=== PATIENT | male | born 1945 | race Caucasian/White ===

== ENCOUNTER 2022-02-22 18:39 | Inpatient (IN) | payer MEDICARE ==
[2022-02-22 18:59] LABS: #Eosinphils 0.4 thou/uL (0.0-0.7); #Lymphocytes 0.7 thou/uL (1.20-3.40); #Monocytes 0.7 thou/uL (0.11-0.59); #Neutrophils 10.8 thou/uL (1.40-6.50); %Basophils 0.2 % (0.0-1.0); %Eosinophils 3.5 % (0.0-10.0); %Lymphocytes 5.2 % (21.0-51.0); %Monocytes 5.6 % (0.0-10.0); %Neutrophils 85.5 % (42.0-75.0); Hemoglobin 11.5 g/dL (14.0-18.0); Mean Corpuscular HGB CONC 32.8 g/dL (32.0-36.0); Mean Corpuscular Hemoglobin 32.6 pg (27.0-31.0); Mean Corpuscular Volume 99.5 fL (78.0-98.0); Mean Platelet Volume 7.1 fL (7.4-10.4); Platelet Count 400 thou/uL (130-400); RBC Distribution Width 12.5 % (11.5-14.5); Red Blood Cell (RBC) Count 3.53 mill/uL (4.70-6.10); White Blood Cell (WBC) Count 12.6 thou/uL (4.8-10.8)
[2022-02-22] MEDS ORDERED: Morphine 2 MG/ML VIAL ONE (19:03)
[2022-02-22 19:21] LABS: ALT (SGPT) 17 U/L (8-55); AST (SGOT) 15 U/L (5-34); Alkaline Phosphatase 142 U/L (40-110); Anion Gap 13 mmol/L (10-20); BUN (Urea Nitrogen) 18 mg/dL (8.4-25.7); Bilirubin, Total 0.3 mg/dL (0.2-1.2); Calc. Creatinine Clearance 0 mL/min (70-130); Calcium 8.8 mg/dL (7.8-10.44); Carbon Dioxide 21 mmol/L (23-31); Chloride 111 mmol/L (98-107); Globulin 2.2 g/dL (2.4-3.5); Glucose 116 mg/dL (83-110); Potassium 3.8 mmol/L (3.5-5.1); Protein, Total 6.2 g/dL (5.8-8.1); Sodium 141 mmol/L (136-145)
[2022-02-22] MEDS ORDERED: Dextrose 5% in Water 1,000 ML IV PRN (19:49)
[2022-02-22] MEDS ORDERED: Dextrose 50% Abboject 50 ML SYRINGE SLOW IVP PRN (19:49)
[2022-02-22] MEDS ORDERED: Ondansetron PF 4 MG/2 ML Vial IVP PRN (19:49)
[2022-02-22] MEDS ORDERED: hydrALAZINE 20 MG/ML VIAL SLOW IVP PRN (19:49)
[2022-02-22] MEDS ORDERED: Ondansetron ODT 4 MG TAB PO PRN (19:49)
[2022-02-22] MEDS ORDERED: Promethazine HCl 25 MG/ML VIAL IM PRN (19:49)
[2022-02-22] MEDS ORDERED: traMADol HCl 50 MG TAB PO PRN (19:49)
[2022-02-22] MEDS: Acetaminophen 325 MG TAB PO SCH (23:49)
[2022-02-22] MEDS: Famotidine 20 MG TAB PO SCH (23:50)
[2022-02-23] MEDS: Acetaminophen 325 MG TAB PO SCH ×4 (02:04→21:09)
[2022-02-23] MEDS: Sodium Chloride 0.9% 1,000 ML IV SCH ×2 (02:09→10:35)
[2022-02-23] MEDS: Morphine 2 MG/ML VIAL SLOW IVP PRN ×3 (02:11→14:15)
[2022-02-23 05:46] LABS: #Eosinphils 0.1 thou/uL (0.0-0.7); #Lymphocytes 0.8 thou/uL (1.20-3.40); #Monocytes 1.1 thou/uL (0.11-0.59); #Neutrophils 9.5 thou/uL (1.40-6.50); %Basophils 0.1 % (0.0-1.0); %Eosinophils 0.8 % (0.0-10.0); %Lymphocytes 6.6 % (21.0-51.0); %Monocytes 9.7 % (0.0-10.0); %Neutrophils 82.8 % (42.0-75.0); Hemoglobin 9.8 g/dL (14.0-18.0); Mean Corpuscular HGB CONC 32.3 g/dL (32.0-36.0); Mean Corpuscular Hemoglobin 32.5 pg (27.0-31.0); Mean Platelet Volume 7.3 fL (7.4-10.4); Platelet Count 332 thou/uL (130-400); RBC Distribution Width 12.5 % (11.5-14.5); Red Blood Cell (RBC) Count 3.02 mill/uL (4.70-6.10); White Blood Cell (WBC) Count 11.5 thou/uL (4.8-10.8)
[2022-02-23 06:17] LABS: Anion Gap 12 mmol/L (10-20); BUN (Urea Nitrogen) 20 mg/dL (8.4-25.7); Calc. Creatinine Clearance 109 mL/min (70-130); Calcium 8.3 mg/dL (7.8-10.44); Carbon Dioxide 19 mmol/L (23-31); Chloride 112 mmol/L (98-107); Glucose 115 mg/dL (83-110); Potassium 3.5 mmol/L (3.5-5.1); Sodium 139 mmol/L (136-145)
[2022-02-23] MEDS ORDERED: MEMANTINE HCL 28 MG PO SCH (09:00)
[2022-02-23] MEDS ORDERED: Non-Formulary Item 1 EACH (Risperidone [Risperdal] 0.5 MG Tab) PO SCH (09:00)
[2022-02-23] MEDS ORDERED: Non-Formulary Item 1 EACH (Levothyroxine Sodium [Levothyroxine] 50 MCG Capsule) PO SCH (09:00)
[2022-02-23] MEDS ORDERED: Magnesium Sulfate 2 GM in Sodium Chloride 0.9% 100 ML IV SCH (09:15)
[2022-02-23] MEDS ORDERED: Potassium Phosphate 30 MMOL, Magnesium Sulfate 2 GM in Sodium Chloride 0.9% 250 ML 250 ML IVPB SCH (09:15)
[2022-02-23] MEDS: Senokot S 8.6-50 MG TAB PO SCH ×2 (10:36→21:10)
[2022-02-23] MEDS: Escitalopram Oxalate 10 mg Tablet PO SCH (10:37)
[2022-02-23] MEDS: Donepezil HCl 10 MG TAB PO SCH (10:37)
[2022-02-23] MEDS: risperiDONE 0.25 MG TAB PO SCH ×3 (10:37→21:07)
[2022-02-23] MEDS: Famotidine 20 MG TAB PO SCH ×2 (10:37→21:09)
[2022-02-23] MEDS: Ascorbic Acid 500 mg Chewable Tablet PO SCH ×2 (10:38→21:07)
[2022-02-23] MEDS: Folic Acid 1 MG TAB PO SCH (10:38)
[2022-02-23] MEDS: Polyethylene Glycol 3350 17 GM Packet PO SCH (10:38)
[2022-02-23] MEDS: Lisinopril 10 MG TAB PO SCH ×2 (10:38→21:08)
[2022-02-23] MEDS: Ferrous Sulfate 325 MG TAB PO SCH ×2 (10:45→16:13)
[2022-02-23 17:24] LABS: SARS-CoV-2 PCR by NAA Not Detected (NotDetected)
[2022-02-23] MEDS: Rosuvastatin 5 MG TAB PO SCH (21:08)
[2022-02-24] MEDS: Acetaminophen 325 MG TAB PO SCH ×4 (02:39→21:00)
[2022-02-24 05:15] LABS: #Eosinphils 0.2 thou/uL (0.0-0.7); #Monocytes 0.8 thou/uL (0.11-0.59); #Neutrophils 5.4 thou/uL (1.40-6.50); %Basophils 0.3 % (0.0-1.0); %Eosinophils 3.3 % (0.0-10.0); %Lymphocytes 12.9 % (21.0-51.0); %Monocytes 11.3 % (0.0-10.0); %Neutrophils 72.2 % (42.0-75.0); Hemoglobin 8.4 g/dL (14.0-18.0); Mean Corpuscular HGB CONC 32.7 g/dL (32.0-36.0); Mean Platelet Volume 7.6 fL (7.4-10.4); Platelet Count 284 thou/uL (130-400); RBC Distribution Width 12.6 % (11.5-14.5); Red Blood Cell (RBC) Count 2.54 mill/uL (4.70-6.10); White Blood Cell (WBC) Count 7.4 thou/uL (4.8-10.8)
[2022-02-24 05:35] LABS: Anion Gap 9 mmol/L (10-20); BUN (Urea Nitrogen) 13 mg/dL (8.4-25.7); Calc. Creatinine Clearance 124 mL/min (70-130); Calcium 8.5 mg/dL (7.8-10.44); Carbon Dioxide 22 mmol/L (23-31); Chloride 111 mmol/L (98-107); Glucose 100 mg/dL (83-110); Magnesium 2.1 mg/dL (1.6-2.6); Phosphorus 3.1 mg/dL (2.3-4.7); Potassium 3.5 mmol/L (3.5-5.1); Sodium 138 mmol/L (136-145)
[2022-02-24] MEDS: Levothyroxine Sodium 50 MCG TAB PO SCH (06:07)
[2022-02-24] MEDS: Lisinopril 10 MG TAB PO SCH ×2 (09:28→21:01)
[2022-02-24] MEDS: Ferrous Sulfate 325 MG TAB PO SCH ×2 (09:28→16:34)
[2022-02-24] MEDS: Famotidine 20 MG TAB PO SCH ×2 (09:29→20:59)
[2022-02-24] MEDS: Folic Acid 1 MG TAB PO SCH (09:29)
[2022-02-24] MEDS: Escitalopram Oxalate 10 mg Tablet PO SCH (09:29)
[2022-02-24] MEDS: Polyethylene Glycol 3350 17 GM Packet PO SCH (09:29)
[2022-02-24] MEDS: Donepezil HCl 10 MG TAB PO SCH ×2 (09:29→21:01)
[2022-02-24] MEDS: Ascorbic Acid 500 mg Chewable Tablet PO SCH ×2 (09:29→21:01)
[2022-02-24] MEDS: Senokot S 8.6-50 MG TAB PO SCH ×2 (09:29→20:59)
[2022-02-24] MEDS: risperiDONE 0.25 MG TAB PO SCH ×3 (09:33→20:59)
[2022-02-24] MEDS ORDERED: ceFAZolin (BATCH) 2 GM in Premix Bag 1 BAG IVPB SCH (10:00)
[2022-02-24] MEDS: Morphine 2 MG/ML VIAL SLOW IVP PRN ×3 (10:23→15:19)
[2022-02-24] MEDS: Rosuvastatin 5 MG TAB PO SCH (21:00)
[2022-02-25] MEDS: Acetaminophen 325 MG TAB PO SCH ×4 (02:16→20:11)
[2022-02-25 05:45] LABS: #Eosinphils 0.2 thou/uL (0.0-0.7); #Lymphocytes 0.9 thou/uL (1.20-3.40); #Monocytes 0.9 thou/uL (0.11-0.59); %Basophils 0.2 % (0.0-1.0); %Eosinophils 2.2 % (0.0-10.0); %Lymphocytes 9.3 % (21.0-51.0); %Monocytes 8.6 % (0.0-10.0); %Neutrophils 79.8 % (42.0-75.0); Hemoglobin 9.5 g/dL (14.0-18.0); Mean Corpuscular HGB CONC 33.7 g/dL (32.0-36.0); Mean Corpuscular Hemoglobin 33.8 pg (27.0-31.0); Mean Platelet Volume 7.5 fL (7.4-10.4); Platelet Count 294 thou/uL (130-400); RBC Distribution Width 12.2 % (11.5-14.5); Red Blood Cell (RBC) Count 2.81 mill/uL (4.70-6.10)
[2022-02-25] MEDS: Levothyroxine Sodium 50 MCG TAB PO SCH (05:59)
[2022-02-25] MEDS: Ascorbic Acid 500 mg Chewable Tablet PO SCH ×2 (10:06→20:11)
[2022-02-25] MEDS: Escitalopram Oxalate 10 mg Tablet PO SCH (10:06)
[2022-02-25] MEDS: Senokot S 8.6-50 MG TAB PO SCH ×2 (10:06→20:11)
[2022-02-25] MEDS: Polyethylene Glycol 3350 17 GM Packet PO SCH (10:06)
[2022-02-25] MEDS: risperiDONE 0.25 MG TAB PO SCH ×3 (10:06→20:11)
[2022-02-25] MEDS: Famotidine 20 MG TAB PO SCH ×2 (10:07→20:10)
[2022-02-25] MEDS: Folic Acid 1 MG TAB PO SCH (10:07)
[2022-02-25] MEDS: Ferrous Sulfate 325 MG TAB PO SCH ×2 (10:07→19:20)
[2022-02-25] MEDS: Donepezil HCl 10 MG TAB PO SCH ×2 (10:07→20:10)
[2022-02-25] MEDS: Lisinopril 10 MG TAB PO SCH ×2 (10:07→20:10)
[2022-02-25] MEDS ORDERED: Enoxaparin Sodium 40 MG/0.4 ML SYRINGE SC SCH (11:00)
[2022-02-25] MEDS: Oxazepam 10 MG CAP PO SCH ×3 (15:12→22:50)
[2022-02-25] MEDS: Rosuvastatin 5 MG TAB PO SCH (20:10)
[2022-02-26] MEDS: Acetaminophen 325 MG TAB PO SCH ×4 (02:03→21:59)
[2022-02-26 05:45] LABS: #Eosinphils 0.3 thou/uL (0.0-0.7); #Lymphocytes 0.9 thou/uL (1.20-3.40); #Monocytes 0.9 thou/uL (0.11-0.59); #Neutrophils 7.8 thou/uL (1.40-6.50); %Basophils 0.3 % (0.0-1.0); %Eosinophils 3.4 % (0.0-10.0); %Lymphocytes 8.6 % (21.0-51.0); %Monocytes 8.7 % (0.0-10.0); Hemoglobin 8.6 g/dL (14.0-18.0); Mean Corpuscular HGB CONC 32.7 g/dL (32.0-36.0); Mean Corpuscular Hemoglobin 32.5 pg (27.0-31.0); Mean Corpuscular Volume 99.5 fL (78.0-98.0); Mean Platelet Volume 7.4 fL (7.4-10.4); Platelet Count 300 thou/uL (130-400); RBC Distribution Width 12.1 % (11.5-14.5); Red Blood Cell (RBC) Count 2.64 mill/uL (4.70-6.10); White Blood Cell (WBC) Count 9.9 thou/uL (4.8-10.8)
[2022-02-26 06:11] LABS: Anion Gap 12 mmol/L (10-20); BUN (Urea Nitrogen) 10 mg/dL (8.4-25.7); Calc. Creatinine Clearance 116 mL/min (70-130); Calcium 8.9 mg/dL (7.8-10.44); Carbon Dioxide 24 mmol/L (23-31); Chloride 107 mmol/L (98-107); Glucose 106 mg/dL (83-110); Magnesium 2.1 mg/dL (1.6-2.6); Phosphorus 2.9 mg/dL (2.3-4.7); Potassium 3.9 mmol/L (3.5-5.1); Sodium 139 mmol/L (136-145)
[2022-02-26] MEDS: Oxazepam 10 MG CAP PO SCH (06:32)
[2022-02-26] MEDS: Levothyroxine Sodium 50 MCG TAB PO SCH (06:33)
[2022-02-26] MEDS ORDERED: Sodium Phosphate 15 MMOL in Sodium Chloride 0.9% 250 ML 250 ML IVPB SCH (08:00)
[2022-02-26] MEDS: Ascorbic Acid 500 mg Chewable Tablet PO SCH ×2 (08:57→22:01)
[2022-02-26] MEDS: Ferrous Sulfate 325 MG TAB PO SCH ×2 (08:57→18:26)
[2022-02-26] MEDS: Escitalopram Oxalate 10 mg Tablet PO SCH (09:00)
[2022-02-26] MEDS: Vancomycin 1.5 GRAM/300 ML BAG 1.5 GM in Premix Bag 1 BAG IVPB SCH ×2 (09:15→22:31)
[2022-02-26] MEDS: ceFAZolin (BATCH) 2 GM in Premix Bag 1 BAG IVPB SCH (09:35)
[2022-02-26] MEDS ORDERED: Bupivacaine 0.25% HCL 30 ML VIAL ONE (10:51)
[2022-02-26] MEDS ORDERED: Fentanyl 100 MCG/2 ML VIAL ONE ×4 (11:01→15:08)
[2022-02-26] MEDS: Famotidine 20 MG TAB PO SCH ×2 (11:09→22:00)
[2022-02-26] MEDS: Senokot S 8.6-50 MG TAB PO SCH ×2 (11:10→21:59)
[2022-02-26] MEDS: risperiDONE 0.25 MG TAB PO SCH ×3 (11:10→21:59)
[2022-02-26] MEDS ORDERED: ceFAZolin (BATCH) 2 GM/100 ML BAG ONE (11:54)
[2022-02-26] MEDS ORDERED: Rocuronium Bromide 10 MG/ML (10ML VIAL) ONE (12:10)
[2022-02-26] MEDS ORDERED: Calcium Chloride 1 GM/10 ML Abboject SYRINGE ONE (12:10)
[2022-02-26] MEDS ORDERED: ePHEDrine 50 MG/ML VIAL ONE (12:10)
[2022-02-26] MEDS ORDERED: Ondansetron PF 4 MG/2 ML Vial ONE (12:10)
[2022-02-26] MEDS ORDERED: Dexamethasone 20 MG/5 ML VIAL ONE (12:10)
[2022-02-26] MEDS ORDERED: Vecuronium 10 MG VIAL ONE (12:10)
[2022-02-26] MEDS ORDERED: Lidocaine 1% PF 5 ML VIAL ONE (12:10)
[2022-02-26] MEDS ORDERED: PROPOFOL 200 MG/20 ML VIAL ONE (12:10)
[2022-02-26] MEDS: Donepezil HCl 10 MG TAB PO SCH ×2 (12:49→22:01)
[2022-02-26] MEDS ORDERED: Tranexamic Acid 1,000 MG/10 ML VIAL ONE (12:50)
[2022-02-26] MEDS: Polyethylene Glycol 3350 17 GM Packet PO SCH (12:50)
[2022-02-26] MEDS ORDERED: SUGAMMADEX SODIUM 200 MG/2 ML VIAL ONE ×2 (14:33→14:36)
[2022-02-26] MEDS: Folic Acid 1 MG TAB PO SCH (16:17)
[2022-02-26] MEDS: Lisinopril 10 MG TAB PO SCH ×2 (16:17→22:00)
[2022-02-26] MEDS: Morphine 2 MG/ML VIAL SLOW IVP PRN (16:34)
[2022-02-26] MEDS: Rosuvastatin 5 MG TAB PO SCH (21:59)
[2022-02-27] MEDS: Acetaminophen 325 MG TAB PO SCH ×4 (02:10→23:26)
[2022-02-27] MEDS: ceFAZolin (BATCH) 2 GM in Premix Bag 1 BAG IVPB SCH ×2 (03:19→12:00)
[2022-02-27 05:27] LABS: #Lymphocytes 0.6 thou/uL (1.20-3.40); #Monocytes 1.2 thou/uL (0.11-0.59); #Neutrophils 11.7 thou/uL (1.40-6.50); %Eosinophils 0.1 % (0.0-10.0); %Lymphocytes 4.5 % (21.0-51.0); %Monocytes 8.9 % (0.0-10.0); %Neutrophils 86.6 % (42.0-75.0); Hemoglobin 8.5 g/dL (14.0-18.0); Mean Corpuscular HGB CONC 32.6 g/dL (32.0-36.0); Mean Corpuscular Hemoglobin 31.8 pg (27.0-31.0); Mean Corpuscular Volume 97.6 fL (78.0-98.0); Mean Platelet Volume 7.5 fL (7.4-10.4); Platelet Count 283 thou/uL (130-400); Red Blood Cell (RBC) Count 2.68 mill/uL (4.70-6.10); White Blood Cell (WBC) Count 13.5 thou/uL (4.8-10.8)
[2022-02-27 05:54] LABS: Anion Gap 13 mmol/L (10-20); BUN (Urea Nitrogen) 18 mg/dL (8.4-25.7); Calc. Creatinine Clearance 96 mL/min (70-130); Calcium 8.6 mg/dL (7.8-10.44); Carbon Dioxide 20 mmol/L (23-31); Chloride 110 mmol/L (98-107); Glucose 139 mg/dL (83-110); Magnesium 1.9 mg/dL (1.6-2.6); Phosphorus 3.5 mg/dL (2.3-4.7); Potassium 4.1 mmol/L (3.5-5.1); Sodium 139 mmol/L (136-145)
[2022-02-27] MEDS: Levothyroxine Sodium 50 MCG TAB PO SCH (06:06)
[2022-02-27] MEDS: Vancomycin 1.5 GRAM/300 ML BAG 1.5 GM in Premix Bag 1 BAG IVPB SCH (09:01)
[2022-02-27] MEDS: Polyethylene Glycol 3350 17 GM Packet PO SCH (09:28)
[2022-02-27] MEDS: Enoxaparin Sodium 40 MG/0.4 ML SYRINGE SC SCH (09:29)
[2022-02-27] MEDS: Senokot S 8.6-50 MG TAB PO SCH ×2 (09:29→23:28)
[2022-02-27] MEDS: Ascorbic Acid 500 mg Chewable Tablet PO SCH ×2 (09:30→23:26)
[2022-02-27] MEDS: Famotidine 20 MG TAB PO SCH ×2 (09:30→23:28)
[2022-02-27] MEDS: risperiDONE 0.25 MG TAB PO SCH ×3 (09:31→23:28)
[2022-02-27] MEDS: Escitalopram Oxalate 10 mg Tablet PO SCH (09:31)
[2022-02-27] MEDS: Donepezil HCl 10 MG TAB PO SCH ×2 (09:31→23:26)
[2022-02-27] MEDS: Folic Acid 1 MG TAB PO SCH (09:31)
[2022-02-27] MEDS: Ferrous Sulfate 325 MG TAB PO SCH ×2 (09:31→18:39)
[2022-02-27] MEDS: Lisinopril 10 MG TAB PO SCH ×2 (09:32→23:27)
[2022-02-27] MEDS ORDERED: PHOS-NAK 1 PKT PACK PO SCH (11:45)
[2022-02-27] MEDS: Rosuvastatin 5 MG TAB PO SCH (23:26)
[2022-02-28] MEDS: Acetaminophen 325 MG TAB PO SCH ×4 (03:49→20:23)
[2022-02-28 05:39] LABS: #Eosinphils 0.1 thou/uL (0.0-0.7); #Monocytes 1.1 thou/uL (0.11-0.59); #Neutrophils 8.5 thou/uL (1.40-6.50); %Basophils 0.1 % (0.0-1.0); %Eosinophils 0.8 % (0.0-10.0); %Lymphocytes 9.3 % (21.0-51.0); %Monocytes 10.4 % (0.0-10.0); %Neutrophils 79.5 % (42.0-75.0); Hemoglobin 7.2 g/dL (14.0-18.0); Mean Corpuscular HGB CONC 32.5 g/dL (32.0-36.0); Mean Corpuscular Hemoglobin 31.9 pg (27.0-31.0); Mean Platelet Volume 7.4 fL (7.4-10.4); Platelet Count 257 thou/uL (130-400); RBC Distribution Width 12.7 % (11.5-14.5); Red Blood Cell (RBC) Count 2.25 mill/uL (4.70-6.10); White Blood Cell (WBC) Count 10.7 thou/uL (4.8-10.8)
[2022-02-28 06:12] LABS: Anion Gap 11 mmol/L (10-20); BUN (Urea Nitrogen) 17 mg/dL (8.4-25.7); Calc. Creatinine Clearance 109 mL/min (70-130); Calcium 8.3 mg/dL (7.8-10.44); Carbon Dioxide 23 mmol/L (23-31); Chloride 108 mmol/L (98-107); Glucose 105 mg/dL (83-110); Magnesium 1.8 mg/dL (1.6-2.6); Phosphorus 2.7 mg/dL (2.3-4.7); Potassium 3.6 mmol/L (3.5-5.1); Sodium 138 mmol/L (136-145)
[2022-02-28] MEDS: Levothyroxine Sodium 50 MCG TAB PO SCH (06:22)
[2022-02-28] MEDS ORDERED: PHOS-NAK 1 PKT PACK PO SCH (08:30)
[2022-02-28] MEDS: Ascorbic Acid 500 mg Chewable Tablet PO SCH ×2 (09:13→20:24)
[2022-02-28] MEDS: Donepezil HCl 10 MG TAB PO SCH ×2 (09:13→20:25)
[2022-02-28] MEDS: risperiDONE 0.25 MG TAB PO SCH ×3 (09:14→20:25)
[2022-02-28] MEDS: Escitalopram Oxalate 10 mg Tablet PO SCH (09:14)
[2022-02-28] MEDS: Famotidine 20 MG TAB PO SCH ×2 (09:14→20:24)
[2022-02-28] MEDS: Ferrous Sulfate 325 MG TAB PO SCH ×2 (09:14→18:41)
[2022-02-28] MEDS: Folic Acid 1 MG TAB PO SCH (09:14)
[2022-02-28] MEDS: Senokot S 8.6-50 MG TAB PO SCH ×2 (09:15→20:24)
[2022-02-28] MEDS: Enoxaparin Sodium 40 MG/0.4 ML SYRINGE SC SCH (09:16)
[2022-02-28] MEDS: Polyethylene Glycol 3350 17 GM Packet PO SCH (09:16)
[2022-02-28] MEDS: Lisinopril 10 MG TAB PO SCH ×2 (09:40→20:24)
[2022-02-28 16:36] LABS: #Eosinphils 0.2 thou/uL (0.0-0.7); #Lymphocytes 0.7 thou/uL (1.20-3.40); #Neutrophils 7.5 thou/uL (1.40-6.50); %Basophils 0.2 % (0.0-1.0); %Eosinophils 2.6 % (0.0-10.0); %Lymphocytes 7.6 % (21.0-51.0); %Monocytes 10.2 % (0.0-10.0); %Neutrophils 79.4 % (42.0-75.0); Hemoglobin 7.8 g/dL (14.0-18.0); Mean Corpuscular HGB CONC 32.4 g/dL (32.0-36.0); Mean Corpuscular Hemoglobin 32.7 pg (27.0-31.0); Mean Platelet Volume 7.2 fL (7.4-10.4); Platelet Count 298 thou/uL (130-400); RBC Distribution Width 12.9 % (11.5-14.5); Red Blood Cell (RBC) Count 2.39 mill/uL (4.70-6.10); White Blood Cell (WBC) Count 9.5 thou/uL (4.8-10.8)
[2022-02-28 16:49] LABS: ALT (SGPT) 20 U/L (8-55); AST (SGOT) 38 U/L (5-34); Albumin 3.1 g/dL (3.4-4.8); Alkaline Phosphatase 88 U/L (40-110); Anion Gap 13 mmol/L (10-20); BUN (Urea Nitrogen) 14 mg/dL (8.4-25.7); Bilirubin, Total 0.7 mg/dL (0.2-1.2); Calc. Creatinine Clearance 124 mL/min (70-130); Calcium 8.6 mg/dL (7.8-10.44); Carbon Dioxide 22 mmol/L (23-31); Chloride 108 mmol/L (98-107); Globulin 2.4 g/dL (2.4-3.5); Glucose 102 mg/dL (83-110); Magnesium 1.8 mg/dL (1.6-2.6); Phosphorus 2.7 mg/dL (2.3-4.7); Potassium 3.8 mmol/L (3.5-5.1); Protein, Total 5.5 g/dL (5.8-8.1); Sodium 139 mmol/L (136-145)
[2022-02-28 16:52] LABS: Troponin I 0.016 ng/mL (< 0.028)
[2022-02-28] MEDS ORDERED: levETIRAcetam in NS 1,000 MG in Premix Bag 1 BAG IVPB SCH (17:30)
[2022-02-28] MEDS ORDERED: Magnesium 2 GM/50 ML(in water) 2 GM in Premix Bag 1 BAG IVPB SCH (17:30)
[2022-02-28 17:34] LABS: Bilirubin Negative (Negative); Blood, Urine 1+ (Negative); Clarity Clear (Clear); Glucose, Urine (Dipstick) Normal (Negative); Ketone, Urine Negative (Negative); Leukocyte Negative Leu/uL (Negative); Nitrite Negative (Negative); Protein, Urine (Dipstick) 30 mg/dL (Neg-Trace); Squamous Epithelial 0-3 HPF (0-3); Urobilinogen Normal mg/dL (Less than 2); pH, Urine 5.5 (5.0-9.0)
[2022-02-28 17:35] LABS: Bacteria/HPF Rare-Few HPF (None Seen)
[2022-02-28] MEDS ORDERED: levETIRAcetam 500 MG/5 ML VIAL SLOW IVP SCH (18:00)
[2022-02-28] MEDS: Rosuvastatin 10 MG TAB PO SCH (20:25)
[2022-02-28] MEDS: levETIRAcetam in NS 500 MG in Premix Bag 1 BAG IVPB SCH (20:26)
[2022-02-28] MEDS ORDERED: Melatonin 3 MG TAB PO SCH (21:00)
[2022-03-01] MEDS: Acetaminophen 325 MG TAB PO SCH ×4 (02:08→20:19)
[2022-03-01 03:58] LABS: #Eosinphils 0.3 thou/uL (0.0-0.7); #Lymphocytes 0.6 thou/uL (1.20-3.40); #Monocytes 0.8 thou/uL (0.11-0.59); #Neutrophils 4.5 thou/uL (1.40-6.50); %Basophils 0.4 % (0.0-1.0); %Eosinophils 5.1 % (0.0-10.0); %Lymphocytes 9.8 % (21.0-51.0); %Monocytes 13.2 % (0.0-10.0); %Neutrophils 71.5 % (42.0-75.0); Hemoglobin 6.5 g/dL (14.0-18.0); Mean Corpuscular HGB CONC 32.7 g/dL (32.0-36.0); Mean Corpuscular Hemoglobin 32.2 pg (27.0-31.0); Mean Corpuscular Volume 98.6 fL (78.0-98.0); Mean Platelet Volume 7.2 fL (7.4-10.4); Platelet Count 255 thou/uL (130-400); RBC Distribution Width 12.7 % (11.5-14.5); Red Blood Cell (RBC) Count 2.03 mill/uL (4.70-6.10); White Blood Cell (WBC) Count 6.3 thou/uL (4.8-10.8)
[2022-03-01 04:20] LABS: Anion Gap 11 mmol/L (10-20); BUN (Urea Nitrogen) 17 mg/dL (8.4-25.7); Calc. Creatinine Clearance 121 mL/min (70-130); Carbon Dioxide 23 mmol/L (23-31); Chloride 107 mmol/L (98-107); Glucose 120 mg/dL (83-110); Magnesium 2.2 mg/dL (1.6-2.6); Phosphorus 3.2 mg/dL (2.3-4.7); Potassium 3.7 mmol/L (3.5-5.1); Sodium 137 mmol/L (136-145)
[2022-03-01] MEDS: Levothyroxine Sodium 50 MCG TAB PO SCH (05:56)
[2022-03-01] MEDS: Polyethylene Glycol 3350 17 GM Packet PO SCH (08:39)
[2022-03-01] MEDS: Folic Acid 1 MG TAB PO SCH (08:39)
[2022-03-01] MEDS: Enoxaparin Sodium 40 MG/0.4 ML SYRINGE SC SCH (08:39)
[2022-03-01] MEDS: risperiDONE 0.25 MG TAB PO SCH (08:40)
[2022-03-01] MEDS: Donepezil HCl 10 MG TAB PO SCH ×2 (08:40→20:18)
[2022-03-01] MEDS: Famotidine 20 MG TAB PO SCH ×2 (08:40→20:19)
[2022-03-01] MEDS: Escitalopram Oxalate 10 mg Tablet PO SCH (08:40)
[2022-03-01] MEDS: levETIRAcetam in NS 500 MG in Premix Bag 1 BAG IVPB SCH (08:40)
[2022-03-01] MEDS: Ferrous Sulfate 325 MG TAB PO SCH ×2 (08:40→16:13)
[2022-03-01] MEDS: Ascorbic Acid 500 mg Chewable Tablet PO SCH ×2 (08:40→16:13)
[2022-03-01] MEDS: Senokot S 8.6-50 MG TAB PO SCH ×2 (08:40→20:18)
[2022-03-01] MEDS: Lisinopril 10 MG TAB PO SCH ×2 (08:41→20:19)
[2022-03-01] MEDS: traMADol HCl 50 MG TAB PO PRN (16:13)
[2022-03-01] MEDS: Rosuvastatin 10 MG TAB PO SCH (20:18)
[2022-03-02] MEDS: Acetaminophen 325 MG TAB PO SCH ×4 (01:20→20:17)
[2022-03-02 04:30] LABS: Anion Gap 10 mmol/L (10-20); BUN (Urea Nitrogen) 15 mg/dL (8.4-25.7); Calc. Creatinine Clearance 132 mL/min (70-130); Calcium 8.4 mg/dL (7.8-10.44); Carbon Dioxide 26 mmol/L (23-31); Chloride 107 mmol/L (98-107); Glucose 106 mg/dL (83-110); Phosphorus 3.1 mg/dL (2.3-4.7); Potassium 3.8 mmol/L (3.5-5.1); Sodium 139 mmol/L (136-145)
[2022-03-02 04:37] LABS: #Eosinphils 0.7 thou/uL (0.0-0.7); #Lymphocytes 0.7 thou/uL (1.20-3.40); #Monocytes 0.8 thou/uL (0.11-0.59); %Basophils 0.4 % (0.0-1.0); %Eosinophils 10.3 % (0.0-10.0); %Lymphocytes 9.2 % (21.0-51.0); %Monocytes 10.5 % (0.0-10.0); %Neutrophils 69.6 % (42.0-75.0); Hemoglobin 7.7 g/dL (14.0-18.0); Mean Corpuscular HGB CONC 32.5 g/dL (32.0-36.0); Mean Corpuscular Hemoglobin 31.7 pg (27.0-31.0); Mean Corpuscular Volume 97.3 fL (78.0-98.0); Mean Platelet Volume 7.3 fL (7.4-10.4); Platelet Count 313 thou/uL (130-400); RBC Distribution Width 13.2 % (11.5-14.5); Red Blood Cell (RBC) Count 2.43 mill/uL (4.70-6.10); White Blood Cell (WBC) Count 7.1 thou/uL (4.8-10.8)
[2022-03-02] MEDS: Levothyroxine Sodium 50 MCG TAB PO SCH (05:50)
[2022-03-02] MEDS: traMADol HCl 50 MG TAB PO PRN (06:19)
[2022-03-02] MEDS ORDERED: PHOS-NAK 1 PKT PACK PO SCH (08:30)
[2022-03-02] MEDS: Escitalopram Oxalate 10 mg Tablet PO SCH (08:37)
[2022-03-02] MEDS: Senokot S 8.6-50 MG TAB PO SCH ×2 (08:37→20:18)
[2022-03-02] MEDS: Enoxaparin Sodium 40 MG/0.4 ML SYRINGE SC SCH (08:37)
[2022-03-02] MEDS: Folic Acid 1 MG TAB PO SCH (08:37)
[2022-03-02] MEDS: Donepezil HCl 10 MG TAB PO SCH ×2 (08:37→20:17)
[2022-03-02] MEDS: Ferrous Sulfate 325 MG TAB PO SCH ×2 (08:37→16:57)
[2022-03-02] MEDS: Famotidine 20 MG TAB PO SCH ×2 (08:37→20:17)
[2022-03-02] MEDS: Polyethylene Glycol 3350 17 GM Packet PO SCH (08:37)
[2022-03-02] MEDS: Ascorbic Acid 500 mg Chewable Tablet PO SCH ×2 (08:37→16:57)
[2022-03-02] MEDS: Lisinopril 10 MG TAB PO SCH ×2 (08:38→20:17)
[2022-03-02] MEDS: Rosuvastatin 10 MG TAB PO SCH (20:18)
[2022-03-03] MEDS: Acetaminophen 325 MG TAB PO SCH ×5 (02:04→20:12)
[2022-03-03] MEDS: Levothyroxine Sodium 50 MCG TAB PO SCH (05:39)
[2022-03-03 07:31] LABS: #Eosinphils 0.5 thou/uL (0.0-0.7); #Lymphocytes 0.8 thou/uL (1.20-3.40); #Monocytes 0.8 thou/uL (0.11-0.59); %Basophils 0.4 % (0.0-1.0); %Eosinophils 8.4 % (0.0-10.0); %Lymphocytes 13.3 % (21.0-51.0); %Monocytes 12.2 % (0.0-10.0); %Neutrophils 65.7 % (42.0-75.0); Hemoglobin 8.3 g/dL (14.0-18.0); Mean Corpuscular HGB CONC 32.5 g/dL (32.0-36.0); Mean Corpuscular Hemoglobin 31.5 pg (27.0-31.0); Mean Corpuscular Volume 96.9 fL (78.0-98.0); Platelet Count 380 thou/uL (130-400); Red Blood Cell (RBC) Count 2.64 mill/uL (4.70-6.10); White Blood Cell (WBC) Count 6.1 thou/uL (4.8-10.8)
[2022-03-03] MEDS: Senokot S 8.6-50 MG TAB PO SCH ×2 (08:17→20:10)
[2022-03-03] MEDS: Lisinopril 10 MG TAB PO SCH ×2 (08:17→20:10)
[2022-03-03] MEDS: Polyethylene Glycol 3350 17 GM Packet PO SCH (08:17)
[2022-03-03] MEDS: Enoxaparin Sodium 40 MG/0.4 ML SYRINGE SC SCH (08:17)
[2022-03-03] MEDS: Ferrous Sulfate 325 MG TAB PO SCH ×2 (08:17→16:52)
[2022-03-03] MEDS: Folic Acid 1 MG TAB PO SCH (08:18)
[2022-03-03] MEDS: Ascorbic Acid 500 mg Chewable Tablet PO SCH ×2 (08:18→16:53)
[2022-03-03] MEDS: Famotidine 20 MG TAB PO SCH ×2 (08:18→20:10)
[2022-03-03] MEDS: Donepezil HCl 10 MG TAB PO SCH ×2 (08:18→20:10)
[2022-03-03] MEDS: Escitalopram Oxalate 10 mg Tablet PO SCH (08:18)
[2022-03-03] MEDS: Rosuvastatin 10 MG TAB PO SCH (20:10)
[2022-03-03 21:17] LABS: SARS-CoV-2 PCR by NAA Not Detected (NotDetected)
[2022-03-04] MEDS: Acetaminophen 325 MG TAB PO SCH ×4 (01:07→20:16)
[2022-03-04] MEDS: Levothyroxine Sodium 50 MCG TAB PO SCH (06:11)
[2022-03-04] MEDS: Enoxaparin Sodium 40 MG/0.4 ML SYRINGE SC SCH (10:10)
[2022-03-04] MEDS: Ascorbic Acid 500 mg Chewable Tablet PO SCH ×2 (10:10→17:14)
[2022-03-04] MEDS: Polyethylene Glycol 3350 17 GM Packet PO SCH (10:10)
[2022-03-04] MEDS: Famotidine 20 MG TAB PO SCH ×2 (10:10→20:17)
[2022-03-04] MEDS: Lisinopril 10 MG TAB PO SCH ×2 (10:10→20:16)
[2022-03-04] MEDS: Donepezil HCl 10 MG TAB PO SCH ×2 (10:10→20:17)
[2022-03-04] MEDS: Folic Acid 1 MG TAB PO SCH (10:11)
[2022-03-04] MEDS: Ferrous Sulfate 325 MG TAB PO SCH ×2 (10:11→17:14)
[2022-03-04] MEDS: Senokot S 8.6-50 MG TAB PO SCH ×2 (10:11→20:54)
[2022-03-04] MEDS: Escitalopram Oxalate 10 mg Tablet PO SCH (10:11)
[2022-03-04] MEDS: Rosuvastatin 10 MG TAB PO SCH (20:16)
[2022-03-05] MEDS: Acetaminophen 325 MG TAB PO SCH ×4 (04:09→21:39)
[2022-03-05] MEDS: Levothyroxine Sodium 50 MCG TAB PO SCH ×2 (06:15→06:36)
[2022-03-05] MEDS: Lisinopril 10 MG TAB PO SCH ×2 (09:56→21:38)
[2022-03-05] MEDS: Ferrous Sulfate 325 MG TAB PO SCH ×2 (09:56→17:29)
[2022-03-05] MEDS: Folic Acid 1 MG TAB PO SCH (09:56)
[2022-03-05] MEDS: Escitalopram Oxalate 10 mg Tablet PO SCH (09:56)
[2022-03-05] MEDS: Famotidine 20 MG TAB PO SCH ×2 (09:57→21:38)
[2022-03-05] MEDS: Donepezil HCl 10 MG TAB PO SCH ×2 (09:57→21:38)
[2022-03-05] MEDS: Ascorbic Acid 500 mg Chewable Tablet PO SCH ×2 (09:57→17:30)
[2022-03-05] MEDS: Senokot S 8.6-50 MG TAB PO SCH ×2 (10:18→21:53)
[2022-03-05] MEDS: Enoxaparin Sodium 40 MG/0.4 ML SYRINGE SC SCH (10:23)
[2022-03-05] MEDS: Polyethylene Glycol 3350 17 GM Packet PO SCH (10:34)
[2022-03-05 15:06] VITALS: BMI 29.8
[2022-03-05] MEDS: Rosuvastatin 10 MG TAB PO SCH (21:38)
[2022-03-06] MEDS: Acetaminophen 325 MG TAB PO SCH ×3 (03:19→14:04)
[2022-03-06] MEDS: Levothyroxine Sodium 50 MCG TAB PO SCH ×2 (06:13→07:11)
[2022-03-06] MEDS: Enoxaparin Sodium 40 MG/0.4 ML SYRINGE SC SCH (09:02)
[2022-03-06] MEDS: Folic Acid 1 MG TAB PO SCH (09:02)
[2022-03-06] MEDS: Ascorbic Acid 500 mg Chewable Tablet PO SCH ×2 (09:02→17:05)
[2022-03-06] MEDS: Donepezil HCl 10 MG TAB PO SCH (09:02)
[2022-03-06] MEDS: Lisinopril 10 MG TAB PO SCH (09:03)
[2022-03-06] MEDS: Escitalopram Oxalate 10 mg Tablet PO SCH (09:03)
[2022-03-06] MEDS: Famotidine 20 MG TAB PO SCH (09:03)
[2022-03-06] MEDS: Ferrous Sulfate 325 MG TAB PO SCH ×2 (09:03→17:04)
[2022-03-06] MEDS: Senokot S 8.6-50 MG TAB PO SCH (09:04)
[2022-03-06 10:18] LABS: #Eosinphils 0.2 thou/uL (0.0-0.7); #Lymphocytes 0.7 thou/uL (1.20-3.40); #Monocytes 0.7 thou/uL (0.11-0.59); #Neutrophils 9.1 thou/uL (1.40-6.50); %Basophils 0.1 % (0.0-1.0); %Eosinophils 2.2 % (0.0-10.0); %Lymphocytes 6.7 % (21.0-51.0); %Monocytes 6.9 % (0.0-10.0); %Neutrophils 84.2 % (42.0-75.0); Hemoglobin 8.8 g/dL (14.0-18.0); Mean Corpuscular HGB CONC 32.9 g/dL (32.0-36.0); Mean Corpuscular Hemoglobin 31.5 pg (27.0-31.0); Mean Corpuscular Volume 95.9 fL (78.0-98.0); Mean Platelet Volume 6.7 fL (7.4-10.4); Platelet Count 559 thou/uL (130-400); RBC Distribution Width 13.1 % (11.5-14.5); Red Blood Cell (RBC) Count 2.78 mill/uL (4.70-6.10); White Blood Cell (WBC) Count 10.8 thou/uL (4.8-10.8)
[2022-03-06 16:07] VITALS: BP 139/82; TEMP 97.9
== END 2022-03-06 17:40 | disposition swing bed (61) | DRG 467 ==
LOC: ERS 18:39 → SJJU 19:49 → SURG A 02-25 18:32 → IMCU/EMU 02-28 18:10 → SURG A 03-02 11:05
PROVIDERS: ADMIT Surgery; ATTEND Surgery
PROC: 0SRR0JZ Replacement of Right Hip Joint, Femoral Surface with Synthetic Substitute, Open Approach (ICD-10-PCS; principal; 2022-02-26)
PROC: 0SPR0JZ Removal of Synthetic Substitute from Right Hip Joint, Femoral Surface, Open Approach (ICD-10-PCS; 2022-02-26)
PROC: 0QS604Z Reposition Right Upper Femur with Internal Fixation Device, Open Approach (ICD-10-PCS; 2022-02-26)
DX: S72.002A Fracture of unspecified part of neck of left femur, initial encounter for closed fracture (principal); M97.01XA Periprosthetic fracture around internal prosthetic right hip joint, initial encounter; R47.01 Aphasia; D62 Acute posthemorrhagic anemia; F05 Delirium due to known physiological condition; Z20.822 Contact with and (suspected) exposure to COVID-19; W18.30XA Fall on same level, unspecified, initial encounter; E78.5 Hyperlipidemia, unspecified; I10 Essential (primary) hypertension; F32.A Depression, unspecified; F03.90 Unspecified dementia, unspecified severity, without behavioral disturbance, psychotic disturbance, mood disturbance, and anxiety; D53.1 Other megaloblastic anemias, not elsewhere classified; Z96.643 Presence of artificial hip joint, bilateral; Z28.311 Partially vaccinated for COVID-19; Z79.82 Long term (current) use of aspirin; Z79.899 Other long term (current) drug therapy; Z79.890 Hormone replacement therapy; G93.89 Other specified disorders of brain
CPT/HCPCS: 36415; 36416; 36430; 70450; 70551; 71045; 72170; 80048; 80053; 81003; 81015; 82140; 83735; 84100; 84146; 84484; 85025; 86850; 86900; 86901; 87070; 87205; 93005; 93010; 95712; 95816; 95819; 95957; 96374; C1776; G0390; J0690; J1100; J1650; J1953; J2270; J2405; J2704; J3010; J3370; J3475; J3490; J7050; P9016; S0020; U0003; U0005

== ENCOUNTER 2022-04-03 18:21 | Inpatient (IN) | payer MEDICARE ==
[2022-04-03 19:06] LABS: #Basophils 0.1 thou/uL (0.0-0.2); #Eosinphils 0.3 thou/uL (0.0-0.7); #Lymphocytes 1.1 thou/uL (1.20-3.40); #Monocytes 0.7 thou/uL (0.11-0.59); #Neutrophils 11.8 thou/uL (1.40-6.50); %Basophils 0.4 % (0.0-1.0); %Eosinophils 1.9 % (0.0-10.0); %Lymphocytes 7.7 % (21.0-51.0); %Monocytes 5.2 % (0.0-10.0); %Neutrophils 84.8 % (42.0-75.0); Hemoglobin 11.8 g/dL (14.0-18.0); Mean Corpuscular HGB CONC 30.6 g/dL (32.0-36.0); Mean Corpuscular Hemoglobin 30.2 pg (27.0-31.0); Mean Corpuscular Volume 98.5 fL (78.0-98.0); Mean Platelet Volume 7.7 fL (7.4-10.4); Platelet Count 321 thou/uL (130-400); RBC Distribution Width 13.7 % (11.5-14.5); Red Blood Cell (RBC) Count 3.91 mill/uL (4.70-6.10)
[2022-04-03 19:24] LABS: ALT (SGPT) 13 U/L (8-55); AST (SGOT) 18 U/L (5-34); Albumin 3.6 g/dL (3.4-4.8); Alkaline Phosphatase 247 U/L (40-110); Anion Gap 14 mmol/L (10-20); BUN (Urea Nitrogen) 15 mg/dL (8.4-25.7); Bilirubin, Total 0.3 mg/dL (0.2-1.2); Calc. Creatinine Clearance 0 mL/min (70-130); Calcium 9.1 mg/dL (7.8-10.44); Carbon Dioxide 23 mmol/L (23-31); Chloride 108 mmol/L (98-107); Globulin 2.4 g/dL (2.4-3.5); Glucose 121 mg/dL (83-110); Sodium 141 mmol/L (136-145)
[2022-04-03] MEDS ORDERED: Promethazine HCl 25 MG/ML VIAL IM PRN (20:18)
[2022-04-03] MEDS ORDERED: hydrALAZINE 20 MG/ML VIAL SLOW IVP PRN (20:18)
[2022-04-03] MEDS ORDERED: Ondansetron PF 4 MG/2 ML Vial IVP PRN (20:18)
[2022-04-03] MEDS ORDERED: Famotidine/PF 20 mg/2ml Vial SLOW IVP SCH (21:00)
[2022-04-03 21:59] LABS: Lactic Acid 2.9 mmol/L (0.5-2.2)
[2022-04-03 22:09] VITALS: BMI 27.2
[2022-04-03] MEDS: Acetaminophen 500 MG TAB PO SCH (22:18)
[2022-04-03] MEDS: Melatonin 3 MG TAB PO PRN (22:19)
[2022-04-03] MEDS: Sodium Chloride 0.9% 1,000 ML IV SCH (22:19)
[2022-04-04] MEDS: Acetaminophen 500 MG TAB PO SCH ×4 (01:35→20:57)
[2022-04-04] MEDS: Sodium Chloride 0.9% 1,000 ML IV SCH ×2 (04:46→09:58)
[2022-04-04] MEDS: Levothyroxine Sodium 50 MCG TAB PO SCH (04:51)
[2022-04-04] MEDS ORDERED: Sodium Chloride 0.9% 1,000 ML IV SCH (06:15)
[2022-04-04 06:18] LABS: #Eosinphils 0.1 thou/uL (0.0-0.7); %Basophils 0.4 % (0.0-1.0); %Eosinophils 0.8 % (0.0-10.0); Hemoglobin 10.2 g/dL (14.0-18.0)
[2022-04-04 06:28] LABS: #Lymphocytes 1.3 thou/uL (1.20-3.40); #Monocytes 0.8 thou/uL (0.11-0.59); #Neutrophils 8.5 thou/uL (1.40-6.50); %Lymphocytes 12.5 % (21.0-51.0); %Monocytes 7.1 % (0.0-10.0); %Neutrophils 79.1 % (42.0-75.0); Mean Corpuscular HGB CONC 31.4 g/dL (32.0-36.0); Mean Corpuscular Hemoglobin 30.6 pg (27.0-31.0); Mean Corpuscular Volume 97.6 fL (78.0-98.0); Mean Platelet Volume 7.7 fL (7.4-10.4); Platelet Count 273 thou/uL (130-400); RBC Distribution Width 13.9 % (11.5-14.5); Red Blood Cell (RBC) Count 3.33 mill/uL (4.70-6.10); White Blood Cell (WBC) Count 10.7 thou/uL (4.8-10.8)
[2022-04-04 06:29] LABS: INR-International Normal Ratio 1.1; Prothrombin Time 14.1 sec (12.0-14.7)
[2022-04-04 06:32] LABS: Anion Gap 12 mmol/L (10-20); BUN (Urea Nitrogen) 16 mg/dL (8.4-25.7); Calc. Creatinine Clearance 98 mL/min (70-130); Calcium 8.5 mg/dL (7.8-10.44); Carbon Dioxide 23 mmol/L (23-31); Chloride 111 mmol/L (98-107); Glucose 118 mg/dL (83-110); Phosphorus 3.5 mg/dL (2.3-4.7); Potassium 3.7 mmol/L (3.5-5.1); Sodium 142 mmol/L (136-145)
[2022-04-04] MEDS ORDERED: Potassium Phosphate 30 MMOL in Sodium Chloride 0.9% 250 ML 250 ML IVPB SCH (09:00)
[2022-04-04] MEDS: Senokot S 8.6-50 MG TAB PO SCH ×2 (09:59→20:57)
[2022-04-04] MEDS: Amlodipine 5 MG TAB PO SCH (09:59)
[2022-04-04] MEDS: Lisinopril 10 MG TAB PO SCH ×2 (10:03→20:57)
[2022-04-04] MEDS: Folic Acid 1 MG TAB PO SCH (10:03)
[2022-04-04] MEDS: Polyethylene Glycol 3350 17 GM Packet PO SCH (10:04)
[2022-04-04] MEDS: Donepezil HCl 10 MG TAB PO SCH ×2 (10:04→20:57)
[2022-04-04] MEDS: Escitalopram Oxalate 10 mg Tablet PO SCH (10:04)
[2022-04-04] MEDS: Lorazepam 2 MG/ML VIAL SLOW IVP PRN (18:42)
[2022-04-04] MEDS: Rosuvastatin 10 MG TAB PO SCH (20:57)
[2022-04-04] MEDS: Morphine 2 MG/ML VIAL SLOW IVP PRN (21:16)
[2022-04-05] MEDS: Sodium Chloride 0.9% 1,000 ML IV SCH ×3 (01:05→14:09)
[2022-04-05] MEDS: Acetaminophen 500 MG TAB PO SCH ×4 (01:59→20:57)
[2022-04-05] MEDS: Levothyroxine Sodium 50 MCG TAB PO SCH (05:28)
[2022-04-05] MEDS: Lisinopril 10 MG TAB PO SCH (08:03)
[2022-04-05] MEDS: Amlodipine 5 MG TAB PO SCH (08:03)
[2022-04-05] MEDS: Escitalopram Oxalate 10 mg Tablet PO SCH (08:03)
[2022-04-05] MEDS: Folic Acid 1 MG TAB PO SCH (08:03)
[2022-04-05] MEDS: Senokot S 8.6-50 MG TAB PO SCH ×2 (08:03→20:52)
[2022-04-05] MEDS: Polyethylene Glycol 3350 17 GM Packet PO SCH (08:03)
[2022-04-05] MEDS: Donepezil HCl 10 MG TAB PO SCH ×2 (08:03→20:51)
[2022-04-05] MEDS ORDERED: Fentanyl 100 MCG/2 ML VIAL ONE (08:54)
[2022-04-05] MEDS ORDERED: CEFAZOLIN 2 GM VIAL ONE (08:57)
[2022-04-05] MEDS ORDERED: Sodium Chloride 0.9% 100 ML ONE (08:57)
[2022-04-05] MEDS ORDERED: fentaNYL Citrate/PF 100 MCG/2 ML SYRINGE ONE (08:58)
[2022-04-05] MEDS ORDERED: SUGAMMADEX SODIUM 200 MG/2 ML VIAL ONE (08:59)
[2022-04-05] MEDS ORDERED: Rocuronium Bromide 10 MG/ML (10ML VIAL) ONE (09:18)
[2022-04-05] MEDS ORDERED: Lidocaine 1% PF 5 ML VIAL ONE (09:18)
[2022-04-05] MEDS ORDERED: Dexamethasone 20 MG/5 ML VIAL ONE (09:18)
[2022-04-05] MEDS ORDERED: PHENYLEPHRINE-NS 100 MCG/ML 10 ML SYRINGE ONE (09:18)
[2022-04-05] MEDS ORDERED: Ondansetron PF 4 MG/2 ML Vial ONE (09:18)
[2022-04-05] MEDS ORDERED: PROPOFOL 200 MG/20 ML VIAL ONE (09:18)
[2022-04-05] MEDS ORDERED: Fentanyl 100 MCG/2 ML VIAL SLOW IVP SCH (12:45)
[2022-04-05 14:50] LABS: #Lymphocytes 0.4 thou/uL (1.20-3.40); #Monocytes 0.3 thou/uL (0.11-0.59); #Neutrophils 15.9 thou/uL (1.40-6.50); %Eosinophils 0.1 % (0.0-10.0); %Lymphocytes 2.5 % (21.0-51.0); %Monocytes 1.6 % (0.0-10.0); %Neutrophils 95.7 % (42.0-75.0); Hemoglobin 9.9 g/dL (14.0-18.0); Mean Corpuscular HGB CONC 31.8 g/dL (32.0-36.0); Mean Corpuscular Volume 97.6 fL (78.0-98.0); Mean Platelet Volume 7.8 fL (7.4-10.4); Platelet Count 242 thou/uL (130-400); RBC Distribution Width 13.8 % (11.5-14.5); White Blood Cell (WBC) Count 16.6 thou/uL (4.8-10.8)
[2022-04-05] MEDS: CEFAZOLIN 2 GM in Sodium Chloride 0.9% 100 ML IVPB SCH (17:18)
[2022-04-05] MEDS: Lorazepam 2 MG/ML VIAL SLOW IVP PRN (17:18)
[2022-04-05] MEDS ORDERED: Ketorolac Tromethamine 30 MG/ML VIAL IVP SCH (18:30)
[2022-04-05] MEDS ORDERED: Amlodipine 5 MG TAB PO SCH (18:45)
[2022-04-05] MEDS: Carbidopa/Levodopa 25-100 mg Tablet PO SCH (20:51)
[2022-04-05] MEDS: Ascorbic Acid 500 mg Chewable Tablet PO SCH (20:51)
[2022-04-05] MEDS: Rosuvastatin 10 MG TAB PO SCH (20:52)
[2022-04-05] MEDS ORDERED: Lisinopril 10 MG TAB PO SCH (21:00)
[2022-04-06] MEDS ORDERED: Calcium Chloride 13.6 MEQ in Sodium Chloride 0.9% 100 ML IVPB SCH (00:15)
[2022-04-06] MEDS ORDERED: Sodium Chloride 0.9% 1,000 ML IV SCH (00:15)
[2022-04-06] MEDS: Ketorolac Tromethamine 30 MG/ML VIAL IVP SCH ×4 (00:15→17:05)
[2022-04-06 00:30] LABS: #Lymphocytes 0.6 thou/uL (1.20-3.40); #Neutrophils 13.4 thou/uL (1.40-6.50); %Lymphocytes 3.7 % (21.0-51.0); %Monocytes 6.6 % (0.0-10.0); %Neutrophils 89.7 % (42.0-75.0); Hemoglobin 7.8 g/dL (14.0-18.0); Mean Corpuscular HGB CONC 31.5 g/dL (32.0-36.0); Mean Corpuscular Hemoglobin 30.8 pg (27.0-31.0); Mean Corpuscular Volume 97.9 fL (78.0-98.0); Mean Platelet Volume 7.7 fL (7.4-10.4); Platelet Count 209 thou/uL (130-400); RBC Distribution Width 13.8 % (11.5-14.5); Red Blood Cell (RBC) Count 2.52 mill/uL (4.70-6.10)
[2022-04-06] MEDS ORDERED: Hydrocortisone Sod Succ/PF 100 mg/2 ml Vial IVP SCH (00:30)
[2022-04-06] MEDS: Sodium Chloride 0.9% 1,000 ML IV SCH ×2 (00:33→05:58)
[2022-04-06] MEDS: CEFAZOLIN 2 GM in Sodium Chloride 0.9% 100 ML IVPB SCH ×3 (02:46→17:04)
[2022-04-06] MEDS: Acetaminophen 500 MG TAB PO SCH ×4 (02:47→21:14)
[2022-04-06 05:48] LABS: #Lymphocytes 0.4 thou/uL (1.20-3.40); #Monocytes 0.7 thou/uL (0.11-0.59); #Neutrophils 12.7 thou/uL (1.40-6.50); %Eosinophils 0.1 % (0.0-10.0); %Lymphocytes 2.5 % (21.0-51.0); %Monocytes 4.9 % (0.0-10.0); %Neutrophils 92.5 % (42.0-75.0); Hemoglobin 7.4 g/dL (14.0-18.0); Mean Corpuscular HGB CONC 31.5 g/dL (32.0-36.0); Mean Corpuscular Volume 98.6 fL (78.0-98.0); Mean Platelet Volume 8.3 fL (7.4-10.4); Platelet Count 206 thou/uL (130-400); RBC Distribution Width 14.4 % (11.5-14.5); Red Blood Cell (RBC) Count 2.38 mill/uL (4.70-6.10); White Blood Cell (WBC) Count 13.7 thou/uL (4.8-10.8)
[2022-04-06] MEDS: Hydrocortisone Sod Succ/PF 100 mg/2 ml Vial IVP SCH ×3 (05:57→21:12)
[2022-04-06] MEDS: Levothyroxine Sodium 50 MCG TAB PO SCH (05:58)
[2022-04-06 06:16] LABS: Anion Gap 10 mmol/L (10-20); BUN (Urea Nitrogen) 10 mg/dL (8.4-25.7); Calc. Creatinine Clearance 103 mL/min (70-130); Calcium 8.5 mg/dL (7.8-10.44); Carbon Dioxide 23 mmol/L (23-31); Chloride 113 mmol/L (98-107); Glucose 120 mg/dL (83-110); Magnesium 1.9 mg/dL (1.6-2.6); Phosphorus 3.5 mg/dL (2.3-4.7); Sodium 142 mmol/L (136-145)
[2022-04-06] MEDS ORDERED: Magnesium Sulfate 3 GM in Sodium Chloride 0.9% 100 ML IVPB SCH (07:00)
[2022-04-06] MEDS ORDERED: Amlodipine 5 MG TAB PO SCH (09:00)
[2022-04-06] MEDS ORDERED: traMADol HCl 50 MG TAB PO SCH ×2 (09:15→12:00)
[2022-04-06] MEDS: Ascorbic Acid 500 mg Chewable Tablet PO SCH ×2 (09:45→21:15)
[2022-04-06] MEDS: Senokot S 8.6-50 MG TAB PO SCH ×2 (09:45→21:15)
[2022-04-06] MEDS: Escitalopram Oxalate 10 mg Tablet PO SCH (09:45)
[2022-04-06] MEDS: Ferrous Sulfate 325 MG TAB PO SCH ×2 (09:46→17:10)
[2022-04-06] MEDS: Folic Acid 1 MG TAB PO SCH (09:46)
[2022-04-06] MEDS: Carbidopa/Levodopa 25-100 mg Tablet PO SCH ×3 (09:46→21:14)
[2022-04-06] MEDS: Donepezil HCl 10 MG TAB PO SCH ×2 (09:46→21:15)
[2022-04-06] MEDS: Polyethylene Glycol 3350 17 GM Packet PO SCH (09:48)
[2022-04-06] MEDS ORDERED: Gabapentin 100 MG CAP PO SCH (15:00)
[2022-04-06 15:57] LABS: #Lymphocytes 0.4 thou/uL (1.20-3.40); #Neutrophils 12.9 thou/uL (1.40-6.50); %Lymphocytes 2.9 % (21.0-51.0); %Monocytes 6.9 % (0.0-10.0); %Neutrophils 90.2 % (42.0-75.0); Hemoglobin 7.4 g/dL (14.0-18.0); Mean Corpuscular HGB CONC 31.6 g/dL (32.0-36.0); Mean Corpuscular Hemoglobin 30.5 pg (27.0-31.0); Mean Corpuscular Volume 96.7 fL (78.0-98.0); Mean Platelet Volume 7.7 fL (7.4-10.4); Platelet Count 213 thou/uL (130-400); RBC Distribution Width 13.6 % (11.5-14.5); Red Blood Cell (RBC) Count 2.43 mill/uL (4.70-6.10); White Blood Cell (WBC) Count 14.3 thou/uL (4.8-10.8)
[2022-04-06] MEDS ORDERED: NS 0.9% w/ 20 MEQ KCL 1,000 ML/1,000 ML BAG IV SCH (16:15)
[2022-04-06] MEDS: Morphine 2 MG/ML VIAL SLOW IVP PRN ×2 (17:05→21:17)
[2022-04-06] MEDS: Rosuvastatin 10 MG TAB PO SCH (21:15)
[2022-04-07] MEDS: Ketorolac Tromethamine 30 MG/ML VIAL IVP SCH (01:26)
[2022-04-07] MEDS: CEFAZOLIN 2 GM in Sodium Chloride 0.9% 100 ML IVPB SCH ×3 (01:27→16:21)
[2022-04-07] MEDS: Acetaminophen 500 MG TAB PO SCH ×4 (02:56→20:45)
[2022-04-07] MEDS: Hydrocortisone Sod Succ/PF 100 mg/2 ml Vial IVP SCH (06:02)
[2022-04-07] MEDS: Levothyroxine Sodium 50 MCG TAB PO SCH (06:03)
[2022-04-07] MEDS: Ibuprofen 200 MG TAB PO SCH ×3 (06:03→20:44)
[2022-04-07 07:22] LABS: #Lymphocytes 0.9 thou/uL (1.20-3.40); #Monocytes 0.8 thou/uL (0.11-0.59); #Neutrophils 8.7 thou/uL (1.40-6.50); %Basophils 0.3 % (0.0-1.0); %Eosinophils 0.3 % (0.0-10.0); %Lymphocytes 8.2 % (21.0-51.0); %Monocytes 7.7 % (0.0-10.0); %Neutrophils 83.6 % (42.0-75.0); Hemoglobin 7.3 g/dL (14.0-18.0); Mean Corpuscular HGB CONC 31.2 g/dL (32.0-36.0); Mean Corpuscular Hemoglobin 30.8 pg (27.0-31.0); Mean Corpuscular Volume 98.7 fL (78.0-98.0); Mean Platelet Volume 8.1 fL (7.4-10.4); Platelet Count 229 thou/uL (130-400); RBC Distribution Width 13.7 % (11.5-14.5); Red Blood Cell (RBC) Count 2.38 mill/uL (4.70-6.10); White Blood Cell (WBC) Count 10.5 thou/uL (4.8-10.8)
[2022-04-07 08:25] LABS: Anion Gap 9 mmol/L (10-20); BUN (Urea Nitrogen) 14 mg/dL (8.4-25.7); Calc. Creatinine Clearance 114 mL/min (70-130); Calcium 8.6 mg/dL (7.8-10.44); Carbon Dioxide 26 mmol/L (23-31); Chloride 114 mmol/L (98-107); Glucose 106 mg/dL (83-110); Magnesium 2.1 mg/dL (1.6-2.6); Phosphorus 2.2 mg/dL (2.3-4.7); Potassium 3.5 mmol/L (3.5-5.1); Sodium 145 mmol/L (136-145)
[2022-04-07] MEDS: Polyethylene Glycol 3350 17 GM Packet PO SCH (08:55)
[2022-04-07] MEDS: Folic Acid 1 MG TAB PO SCH (08:55)
[2022-04-07] MEDS: Donepezil HCl 10 MG TAB PO SCH ×2 (08:55→20:47)
[2022-04-07] MEDS: Ferrous Sulfate 325 MG TAB PO SCH ×2 (08:56→16:21)
[2022-04-07] MEDS: Senokot S 8.6-50 MG TAB PO SCH ×2 (08:56→20:45)
[2022-04-07] MEDS: Ascorbic Acid 500 mg Chewable Tablet PO SCH ×2 (08:56→20:44)
[2022-04-07] MEDS: Carbidopa/Levodopa 25-100 mg Tablet PO SCH ×3 (08:56→20:45)
[2022-04-07] MEDS: Enoxaparin Sodium 40 MG/0.4 ML SYRINGE SC SCH (08:58)
[2022-04-07] MEDS: Escitalopram Oxalate 10 mg Tablet PO SCH (09:04)
[2022-04-07] MEDS: Rosuvastatin 10 MG TAB PO SCH (20:43)
[2022-04-07] MEDS: Melatonin 3 MG TAB PO PRN (20:43)
[2022-04-08] MEDS: Acetaminophen 500 MG TAB PO SCH ×4 (03:20→22:10)
[2022-04-08] MEDS: Ibuprofen 200 MG TAB PO SCH ×3 (06:06→22:12)
[2022-04-08] MEDS: Levothyroxine Sodium 50 MCG TAB PO SCH (06:06)
[2022-04-08] MEDS: Polyethylene Glycol 3350 17 GM Packet PO SCH (07:56)
[2022-04-08] MEDS: Carbidopa/Levodopa 25-100 mg Tablet PO SCH ×3 (07:57→22:08)
[2022-04-08] MEDS: Donepezil HCl 10 MG TAB PO SCH ×2 (07:57→22:09)
[2022-04-08] MEDS: Senokot S 8.6-50 MG TAB PO SCH ×2 (07:57→22:09)
[2022-04-08] MEDS: Folic Acid 1 MG TAB PO SCH (07:57)
[2022-04-08] MEDS: Ferrous Sulfate 325 MG TAB PO SCH ×2 (07:57→18:19)
[2022-04-08] MEDS: Ascorbic Acid 500 mg Chewable Tablet PO SCH ×2 (07:58→22:10)
[2022-04-08] MEDS: Enoxaparin Sodium 40 MG/0.4 ML SYRINGE SC SCH (08:10)
[2022-04-08] MEDS: Escitalopram Oxalate 10 mg Tablet PO SCH (08:10)
[2022-04-08] MEDS ORDERED: Lorazepam 2 MG/ML VIAL SLOW IVP PRN (17:44)
[2022-04-08] MEDS: Melatonin 3 MG TAB PO PRN (22:09)
[2022-04-08] MEDS: Rosuvastatin 10 MG TAB PO SCH (22:09)
[2022-04-09] MEDS: Acetaminophen 500 MG TAB PO SCH ×4 (02:30→18:00)
[2022-04-09] MEDS: Levothyroxine Sodium 50 MCG TAB PO SCH (06:42)
[2022-04-09] MEDS ORDERED: Famotidine 20 MG TAB PO SCH (09:00)
[2022-04-09] MEDS ORDERED: Famotidine 40 MG/4 ML VIAL SLOW IVP SCH (09:00)
[2022-04-09] MEDS: Ferrous Sulfate 325 MG TAB PO SCH ×3 (09:30→19:31)
[2022-04-09] MEDS: Senokot S 8.6-50 MG TAB PO SCH ×2 (09:30→19:31)
[2022-04-09] MEDS: Amlodipine 5 MG TAB PO SCH (09:31)
[2022-04-09] MEDS: Escitalopram Oxalate 10 mg Tablet PO SCH (09:31)
[2022-04-09] MEDS: Folic Acid 1 MG TAB PO SCH (09:31)
[2022-04-09] MEDS: Ascorbic Acid 500 mg Chewable Tablet PO SCH ×2 (09:31→19:30)
[2022-04-09] MEDS: Donepezil HCl 10 MG TAB PO SCH ×2 (09:31→19:31)
[2022-04-09] MEDS: Enoxaparin Sodium 40 MG/0.4 ML SYRINGE SC SCH (09:31)
[2022-04-09] MEDS: Carbidopa/Levodopa 25-100 mg Tablet PO SCH ×3 (09:31→19:31)
[2022-04-09] MEDS: Polyethylene Glycol 3350 17 GM Packet PO SCH (09:32)
[2022-04-09] MEDS: Famotidine 20 MG TAB PO SCH ×2 (11:41→19:31)
[2022-04-09] MEDS: Rosuvastatin 10 MG TAB PO SCH (19:30)
[2022-04-09] MEDS: Melatonin 3 MG TAB PO PRN (19:31)
[2022-04-10] MEDS: Acetaminophen 500 MG TAB PO SCH ×4 (00:22→17:24)
[2022-04-10] MEDS: Levothyroxine Sodium 50 MCG TAB PO SCH (05:34)
[2022-04-10] MEDS: Amlodipine 5 MG TAB PO SCH (09:53)
[2022-04-10] MEDS: Ascorbic Acid 500 mg Chewable Tablet PO SCH ×2 (09:53→21:07)
[2022-04-10] MEDS: Donepezil HCl 10 MG TAB PO SCH ×2 (09:54→21:08)
[2022-04-10] MEDS: Carbidopa/Levodopa 25-100 mg Tablet PO SCH ×3 (09:54→21:08)
[2022-04-10] MEDS: Enoxaparin Sodium 40 MG/0.4 ML SYRINGE SC SCH (09:54)
[2022-04-10] MEDS: Polyethylene Glycol 3350 17 GM Packet PO SCH (09:55)
[2022-04-10] MEDS: Famotidine 20 MG TAB PO SCH ×2 (09:55→21:08)
[2022-04-10] MEDS: Senokot S 8.6-50 MG TAB PO SCH ×2 (09:55→22:24)
[2022-04-10] MEDS: Folic Acid 1 MG TAB PO SCH (09:55)
[2022-04-10] MEDS: Ferrous Sulfate 325 MG TAB PO SCH ×2 (09:55→21:08)
[2022-04-10] MEDS: Escitalopram Oxalate 10 mg Tablet PO SCH (09:59)
[2022-04-10] MEDS: Rosuvastatin 10 MG TAB PO SCH (21:07)
[2022-04-10] MEDS: Melatonin 3 MG TAB PO PRN (21:08)
[2022-04-11] MEDS: Acetaminophen 500 MG TAB PO SCH ×5 (01:11→23:56)
[2022-04-11] MEDS: Levothyroxine Sodium 50 MCG TAB PO SCH (06:08)
[2022-04-11] MEDS: Ferrous Sulfate 325 MG TAB PO SCH ×2 (10:02→21:35)
[2022-04-11] MEDS: Escitalopram Oxalate 10 mg Tablet PO SCH (10:02)
[2022-04-11] MEDS: Ascorbic Acid 500 mg Chewable Tablet PO SCH ×2 (10:02→21:35)
[2022-04-11] MEDS: Folic Acid 1 MG TAB PO SCH (10:02)
[2022-04-11] MEDS: Carbidopa/Levodopa 25-100 mg Tablet PO SCH ×3 (10:02→21:35)
[2022-04-11] MEDS: Famotidine 20 MG TAB PO SCH ×2 (10:03→21:35)
[2022-04-11] MEDS: Enoxaparin Sodium 40 MG/0.4 ML SYRINGE SC SCH (10:03)
[2022-04-11] MEDS: Amlodipine 5 MG TAB PO SCH (10:03)
[2022-04-11] MEDS: Donepezil HCl 10 MG TAB PO SCH ×2 (10:03→21:35)
[2022-04-11] MEDS: Senokot S 8.6-50 MG TAB PO SCH ×2 (10:04→21:35)
[2022-04-11] MEDS: Polyethylene Glycol 3350 17 GM Packet PO SCH (10:04)
[2022-04-11] MEDS: Rosuvastatin 10 MG TAB PO SCH (21:35)
[2022-04-12] MEDS: Levothyroxine Sodium 50 MCG TAB PO SCH (06:20)
[2022-04-12] MEDS: Acetaminophen 500 MG TAB PO SCH ×3 (06:20→17:12)
[2022-04-12] MEDS: Polyethylene Glycol 3350 17 GM Packet PO SCH (09:59)
[2022-04-12] MEDS: Famotidine 20 MG TAB PO SCH ×2 (10:00→21:46)
[2022-04-12] MEDS: Donepezil HCl 10 MG TAB PO SCH ×2 (10:00→21:46)
[2022-04-12] MEDS: Ferrous Sulfate 325 MG TAB PO SCH ×2 (10:00→21:46)
[2022-04-12] MEDS: Escitalopram Oxalate 10 mg Tablet PO SCH (10:00)
[2022-04-12] MEDS: Carbidopa/Levodopa 25-100 mg Tablet PO SCH ×3 (10:00→21:46)
[2022-04-12] MEDS: Amlodipine 5 MG TAB PO SCH (10:00)
[2022-04-12] MEDS: Enoxaparin Sodium 40 MG/0.4 ML SYRINGE SC SCH (10:00)
[2022-04-12] MEDS: Ascorbic Acid 500 mg Chewable Tablet PO SCH ×2 (10:00→21:46)
[2022-04-12] MEDS: Folic Acid 1 MG TAB PO SCH (10:00)
[2022-04-12] MEDS: Senokot S 8.6-50 MG TAB PO SCH ×2 (10:02→21:47)
[2022-04-12] MEDS: Rosuvastatin 10 MG TAB PO SCH (21:45)
[2022-04-13] MEDS: Acetaminophen 500 MG TAB PO SCH ×4 (02:13→17:55)
[2022-04-13] MEDS: Levothyroxine Sodium 50 MCG TAB PO SCH (06:06)
[2022-04-13] MEDS: Famotidine 20 MG TAB PO SCH ×2 (10:27→21:37)
[2022-04-13] MEDS: Ascorbic Acid 500 mg Chewable Tablet PO SCH ×2 (10:27→21:38)
[2022-04-13] MEDS: Folic Acid 1 MG TAB PO SCH (10:27)
[2022-04-13] MEDS: Donepezil HCl 10 MG TAB PO SCH ×2 (10:27→21:37)
[2022-04-13] MEDS: Carbidopa/Levodopa 25-100 mg Tablet PO SCH ×3 (10:27→21:38)
[2022-04-13] MEDS: Amlodipine 5 MG TAB PO SCH (10:27)
[2022-04-13] MEDS: Senokot S 8.6-50 MG TAB PO SCH ×2 (10:27→21:37)
[2022-04-13] MEDS: Escitalopram Oxalate 10 mg Tablet PO SCH (10:27)
[2022-04-13] MEDS: Ferrous Sulfate 325 MG TAB PO SCH ×2 (10:28→21:37)
[2022-04-13] MEDS: Polyethylene Glycol 3350 17 GM Packet PO SCH (10:28)
[2022-04-13] MEDS: Enoxaparin Sodium 40 MG/0.4 ML SYRINGE SC SCH (10:28)
[2022-04-13] MEDS ORDERED: Lorazepam 2 MG/ML VIAL SLOW IVP SCH (21:30)
[2022-04-13] MEDS: Rosuvastatin 10 MG TAB PO SCH (21:37)
[2022-04-14] MEDS: Acetaminophen 500 MG TAB PO SCH ×4 (00:16→18:44)
[2022-04-14] MEDS: Levothyroxine Sodium 50 MCG TAB PO SCH (05:39)
[2022-04-14] MEDS: Ascorbic Acid 500 mg Chewable Tablet PO SCH ×2 (09:03→21:41)
[2022-04-14] MEDS: Enoxaparin Sodium 40 MG/0.4 ML SYRINGE SC SCH (09:03)
[2022-04-14] MEDS: Polyethylene Glycol 3350 17 GM Packet PO SCH (09:03)
[2022-04-14] MEDS: Donepezil HCl 10 MG TAB PO SCH ×2 (09:03→21:41)
[2022-04-14] MEDS: Famotidine 20 MG TAB PO SCH ×2 (09:03→21:42)
[2022-04-14] MEDS: Carbidopa/Levodopa 25-100 mg Tablet PO SCH ×3 (09:03→21:41)
[2022-04-14] MEDS: Folic Acid 1 MG TAB PO SCH (09:03)
[2022-04-14] MEDS: Senokot S 8.6-50 MG TAB PO SCH ×2 (09:04→21:41)
[2022-04-14] MEDS: Ferrous Sulfate 325 MG TAB PO SCH ×2 (09:04→21:42)
[2022-04-14] MEDS: Escitalopram Oxalate 10 mg Tablet PO SCH (09:06)
[2022-04-14] MEDS: Amlodipine 5 MG TAB PO SCH (09:10)
[2022-04-14] MEDS ORDERED: Lorazepam 2 MG/ML VIAL SLOW IVP SCH (19:47)
[2022-04-14] MEDS ORDERED: Haloperidol Lactate 5 MG/ML VIAL IM SCH (20:00)
[2022-04-14] MEDS: Rosuvastatin 10 MG TAB PO SCH (21:41)
[2022-04-15] MEDS: Acetaminophen 500 MG TAB PO SCH ×4 (00:44→18:22)
[2022-04-15] MEDS: Levothyroxine Sodium 50 MCG TAB PO SCH (06:06)
[2022-04-15] MEDS: Donepezil HCl 10 MG TAB PO SCH ×2 (09:53→21:48)
[2022-04-15] MEDS: Famotidine 20 MG TAB PO SCH (09:53)
[2022-04-15] MEDS: Ascorbic Acid 500 mg Chewable Tablet PO SCH ×2 (09:53→21:48)
[2022-04-15] MEDS: Carbidopa/Levodopa 25-100 mg Tablet PO SCH ×3 (09:53→21:48)
[2022-04-15] MEDS: Folic Acid 1 MG TAB PO SCH (09:53)
[2022-04-15] MEDS: Senokot S 8.6-50 MG TAB PO SCH (09:54)
[2022-04-15] MEDS: Amlodipine 5 MG TAB PO SCH (09:54)
[2022-04-15] MEDS: Polyethylene Glycol 3350 17 GM Packet PO SCH (09:54)
[2022-04-15] MEDS: Enoxaparin Sodium 40 MG/0.4 ML SYRINGE SC SCH (09:55)
[2022-04-15] MEDS: Ferrous Sulfate 325 MG TAB PO SCH ×2 (09:56→21:48)
[2022-04-15] MEDS: Escitalopram Oxalate 10 mg Tablet PO SCH (10:17)
[2022-04-15] MEDS: Melatonin 3 MG TAB PO PRN (21:48)
[2022-04-15] MEDS: Rosuvastatin 10 MG TAB PO SCH (21:48)
[2022-04-16] MEDS: Famotidine 20 MG TAB PO SCH ×3 (00:55→20:23)
[2022-04-16] MEDS: Senokot S 8.6-50 MG TAB PO SCH ×3 (00:55→20:23)
[2022-04-16] MEDS: Acetaminophen 500 MG TAB PO SCH ×5 (00:55→23:54)
[2022-04-16] MEDS: Levothyroxine Sodium 50 MCG TAB PO SCH (05:17)
[2022-04-16] MEDS: Enoxaparin Sodium 40 MG/0.4 ML SYRINGE SC SCH (08:48)
[2022-04-16] MEDS: Ascorbic Acid 500 mg Chewable Tablet PO SCH ×2 (08:48→20:22)
[2022-04-16] MEDS: Amlodipine 5 MG TAB PO SCH (08:48)
[2022-04-16] MEDS: Carbidopa/Levodopa 25-100 mg Tablet PO SCH ×3 (08:48→20:23)
[2022-04-16] MEDS: Polyethylene Glycol 3350 17 GM Packet PO SCH (08:48)
[2022-04-16] MEDS: Ferrous Sulfate 325 MG TAB PO SCH ×2 (08:49→20:22)
[2022-04-16] MEDS: Folic Acid 1 MG TAB PO SCH (08:49)
[2022-04-16] MEDS: Donepezil HCl 10 MG TAB PO SCH ×2 (08:49→20:23)
[2022-04-16] MEDS: Escitalopram Oxalate 10 mg Tablet PO SCH (08:56)
[2022-04-16] MEDS: Rosuvastatin 10 MG TAB PO SCH (20:22)
[2022-04-16] MEDS: Melatonin 3 MG TAB PO PRN (20:22)
[2022-04-17] MEDS: Acetaminophen 500 MG TAB PO SCH ×3 (06:05→17:07)
[2022-04-17] MEDS: Levothyroxine Sodium 50 MCG TAB PO SCH (06:05)
[2022-04-17] MEDS: Escitalopram Oxalate 10 mg Tablet PO SCH (08:30)
[2022-04-17] MEDS: Polyethylene Glycol 3350 17 GM Packet PO SCH (08:30)
[2022-04-17] MEDS: Amlodipine 5 MG TAB PO SCH (08:30)
[2022-04-17] MEDS: Senokot S 8.6-50 MG TAB PO SCH ×2 (08:30→20:09)
[2022-04-17] MEDS: Enoxaparin Sodium 40 MG/0.4 ML SYRINGE SC SCH (08:30)
[2022-04-17] MEDS: Carbidopa/Levodopa 25-100 mg Tablet PO SCH ×3 (08:31→20:08)
[2022-04-17] MEDS: Ascorbic Acid 500 mg Chewable Tablet PO SCH ×2 (08:31→20:08)
[2022-04-17] MEDS: Famotidine 20 MG TAB PO SCH ×2 (08:31→20:08)
[2022-04-17] MEDS: Donepezil HCl 10 MG TAB PO SCH ×2 (08:31→20:08)
[2022-04-17] MEDS: Ferrous Sulfate 325 MG TAB PO SCH ×2 (08:31→20:08)
[2022-04-17] MEDS: Folic Acid 1 MG TAB PO SCH (08:31)
[2022-04-17] MEDS: Rosuvastatin 10 MG TAB PO SCH (20:08)
[2022-04-18] MEDS: Acetaminophen 500 MG TAB PO SCH ×4 (01:27→17:08)
[2022-04-18] MEDS: Levothyroxine Sodium 50 MCG TAB PO SCH (06:31)
[2022-04-18] MEDS: Escitalopram Oxalate 10 mg Tablet PO SCH (09:13)
[2022-04-18] MEDS: Enoxaparin Sodium 40 MG/0.4 ML SYRINGE SC SCH (09:13)
[2022-04-18] MEDS: Folic Acid 1 MG TAB PO SCH (09:13)
[2022-04-18] MEDS: Donepezil HCl 10 MG TAB PO SCH ×2 (09:13→20:12)
[2022-04-18] MEDS: Amlodipine 5 MG TAB PO SCH (09:13)
[2022-04-18] MEDS: Ferrous Sulfate 325 MG TAB PO SCH ×2 (09:13→20:12)
[2022-04-18] MEDS: Carbidopa/Levodopa 25-100 mg Tablet PO SCH ×3 (09:13→20:12)
[2022-04-18] MEDS: Senokot S 8.6-50 MG TAB PO SCH ×2 (09:14→20:12)
[2022-04-18] MEDS: Ascorbic Acid 500 mg Chewable Tablet PO SCH ×2 (09:14→20:12)
[2022-04-18] MEDS: Famotidine 20 MG TAB PO SCH ×2 (09:14→20:13)
[2022-04-18] MEDS: Polyethylene Glycol 3350 17 GM Packet PO SCH (09:14)
[2022-04-18] MEDS: Melatonin 3 MG TAB PO PRN (20:11)
[2022-04-18] MEDS: Rosuvastatin 10 MG TAB PO SCH (20:14)
[2022-04-19] MEDS: Acetaminophen 500 MG TAB PO SCH ×5 (00:23→23:33)
[2022-04-19] MEDS: Levothyroxine Sodium 50 MCG TAB PO SCH (06:34)
[2022-04-19] MEDS: Senokot S 8.6-50 MG TAB PO SCH ×2 (09:23→19:23)
[2022-04-19] MEDS: Amlodipine 5 MG TAB PO SCH (09:23)
[2022-04-19] MEDS: Enoxaparin Sodium 40 MG/0.4 ML SYRINGE SC SCH (09:23)
[2022-04-19] MEDS: Polyethylene Glycol 3350 17 GM Packet PO SCH (09:23)
[2022-04-19] MEDS: Famotidine 20 MG TAB PO SCH ×2 (09:23→19:51)
[2022-04-19] MEDS: Carbidopa/Levodopa 25-100 mg Tablet PO SCH ×3 (09:23→19:52)
[2022-04-19] MEDS: Ferrous Sulfate 325 MG TAB PO SCH ×2 (09:23→19:51)
[2022-04-19] MEDS: Folic Acid 1 MG TAB PO SCH (09:23)
[2022-04-19] MEDS: Escitalopram Oxalate 10 mg Tablet PO SCH (09:23)
[2022-04-19] MEDS: Ascorbic Acid 500 mg Chewable Tablet PO SCH ×2 (09:23→19:51)
[2022-04-19] MEDS: Donepezil HCl 10 MG TAB PO SCH ×2 (09:23→19:51)
[2022-04-19] MEDS: Rosuvastatin 10 MG TAB PO SCH (19:51)
[2022-04-19] MEDS: Melatonin 3 MG TAB PO PRN (19:52)
[2022-04-20] MEDS: Acetaminophen 500 MG TAB PO SCH ×3 (06:04→18:46)
[2022-04-20] MEDS: Levothyroxine Sodium 50 MCG TAB PO SCH (06:05)
[2022-04-20] MEDS: Enoxaparin Sodium 40 MG/0.4 ML SYRINGE SC SCH (10:41)
[2022-04-20] MEDS: Amlodipine 5 MG TAB PO SCH (10:41)
[2022-04-20] MEDS: Ascorbic Acid 500 mg Chewable Tablet PO SCH ×2 (10:41→19:57)
[2022-04-20] MEDS: Polyethylene Glycol 3350 17 GM Packet PO SCH (10:41)
[2022-04-20] MEDS: Senokot S 8.6-50 MG TAB PO SCH ×2 (10:42→19:20)
[2022-04-20] MEDS: Escitalopram Oxalate 10 mg Tablet PO SCH (10:42)
[2022-04-20] MEDS: Donepezil HCl 10 MG TAB PO SCH ×2 (10:42→19:58)
[2022-04-20] MEDS: Ferrous Sulfate 325 MG TAB PO SCH ×2 (10:42→19:56)
[2022-04-20] MEDS: Famotidine 20 MG TAB PO SCH ×2 (10:42→19:57)
[2022-04-20] MEDS: Carbidopa/Levodopa 25-100 mg Tablet PO SCH ×3 (10:42→19:57)
[2022-04-20] MEDS: Folic Acid 1 MG TAB PO SCH (10:43)
[2022-04-20] MEDS: Rosuvastatin 10 MG TAB PO SCH (19:56)
[2022-04-20] MEDS: Melatonin 3 MG TAB PO PRN (19:58)
[2022-04-21] MEDS: Acetaminophen 500 MG TAB PO SCH ×5 (00:11→23:05)
[2022-04-21] MEDS: Levothyroxine Sodium 50 MCG TAB PO SCH (05:32)
[2022-04-21] MEDS: Polyethylene Glycol 3350 17 GM Packet PO SCH (09:11)
[2022-04-21] MEDS: Folic Acid 1 MG TAB PO SCH (09:14)
[2022-04-21] MEDS: Escitalopram Oxalate 10 mg Tablet PO SCH (09:14)
[2022-04-21] MEDS: Ferrous Sulfate 325 MG TAB PO SCH ×2 (09:14→19:56)
[2022-04-21] MEDS: Enoxaparin Sodium 40 MG/0.4 ML SYRINGE SC SCH (09:14)
[2022-04-21] MEDS: Ascorbic Acid 500 mg Chewable Tablet PO SCH ×2 (09:14→19:56)
[2022-04-21] MEDS: Donepezil HCl 10 MG TAB PO SCH ×2 (09:14→19:56)
[2022-04-21] MEDS: Amlodipine 5 MG TAB PO SCH (09:14)
[2022-04-21] MEDS: Senokot S 8.6-50 MG TAB PO SCH ×2 (09:15→19:55)
[2022-04-21] MEDS: Carbidopa/Levodopa 25-100 mg Tablet PO SCH ×3 (09:15→19:56)
[2022-04-21] MEDS: Famotidine 20 MG TAB PO SCH ×2 (09:15→19:55)
[2022-04-21] MEDS: Melatonin 3 MG TAB PO PRN (19:56)
[2022-04-21] MEDS: Rosuvastatin 10 MG TAB PO SCH (19:56)
[2022-04-22] MEDS: Acetaminophen 500 MG TAB PO SCH ×4 (05:38→23:06)
[2022-04-22] MEDS: Levothyroxine Sodium 50 MCG TAB PO SCH (05:38)
[2022-04-22] MEDS: Enoxaparin Sodium 40 MG/0.4 ML SYRINGE SC SCH (08:54)
[2022-04-22] MEDS: Ferrous Sulfate 325 MG TAB PO SCH ×2 (08:55→20:18)
[2022-04-22] MEDS: Senokot S 8.6-50 MG TAB PO SCH ×2 (08:55→20:18)
[2022-04-22] MEDS: Donepezil HCl 10 MG TAB PO SCH ×2 (08:55→20:18)
[2022-04-22] MEDS: Carbidopa/Levodopa 25-100 mg Tablet PO SCH ×3 (08:55→20:18)
[2022-04-22] MEDS: Polyethylene Glycol 3350 17 GM Packet PO SCH (08:55)
[2022-04-22] MEDS: Folic Acid 1 MG TAB PO SCH (08:55)
[2022-04-22] MEDS: Amlodipine 5 MG TAB PO SCH (08:55)
[2022-04-22] MEDS: Famotidine 20 MG TAB PO SCH ×2 (08:55→20:18)
[2022-04-22] MEDS: Ascorbic Acid 500 mg Chewable Tablet PO SCH ×2 (08:55→20:17)
[2022-04-22] MEDS: Escitalopram Oxalate 10 mg Tablet PO SCH (08:55)
[2022-04-22] MEDS: Rosuvastatin 10 MG TAB PO SCH (20:18)
[2022-04-22] MEDS: Melatonin 3 MG TAB PO PRN (21:58)
[2022-04-23] MEDS: Acetaminophen 500 MG TAB PO SCH ×4 (06:17→23:56)
[2022-04-23] MEDS: Levothyroxine Sodium 50 MCG TAB PO SCH (06:17)
[2022-04-23] MEDS: Donepezil HCl 10 MG TAB PO SCH ×2 (09:02→19:59)
[2022-04-23] MEDS: Famotidine 20 MG TAB PO SCH ×2 (09:02→19:59)
[2022-04-23] MEDS: Enoxaparin Sodium 40 MG/0.4 ML SYRINGE SC SCH (09:02)
[2022-04-23] MEDS: Ascorbic Acid 500 mg Chewable Tablet PO SCH ×2 (09:02→19:59)
[2022-04-23] MEDS: Carbidopa/Levodopa 25-100 mg Tablet PO SCH ×3 (09:02→19:59)
[2022-04-23] MEDS: Ferrous Sulfate 325 MG TAB PO SCH ×2 (09:02→19:59)
[2022-04-23] MEDS: Folic Acid 1 MG TAB PO SCH (09:02)
[2022-04-23] MEDS: Amlodipine 5 MG TAB PO SCH (09:02)
[2022-04-23] MEDS: Escitalopram Oxalate 10 mg Tablet PO SCH (09:05)
[2022-04-23] MEDS: Polyethylene Glycol 3350 17 GM Packet PO SCH (09:14)
[2022-04-23] MEDS: Senokot S 8.6-50 MG TAB PO SCH ×2 (09:14→20:00)
[2022-04-23] MEDS: Melatonin 3 MG TAB PO PRN (19:59)
[2022-04-23] MEDS: Rosuvastatin 10 MG TAB PO SCH (19:59)
[2022-04-24] MEDS: Acetaminophen 500 MG TAB PO SCH ×4 (06:10→22:18)
[2022-04-24] MEDS: Levothyroxine Sodium 50 MCG TAB PO SCH (06:10)
[2022-04-24] MEDS: Enoxaparin Sodium 40 MG/0.4 ML SYRINGE SC SCH (08:42)
[2022-04-24] MEDS: Donepezil HCl 10 MG TAB PO SCH ×2 (08:45→19:56)
[2022-04-24] MEDS: Amlodipine 5 MG TAB PO SCH (08:45)
[2022-04-24] MEDS: Senokot S 8.6-50 MG TAB PO SCH ×2 (08:46→19:32)
[2022-04-24] MEDS: Folic Acid 1 MG TAB PO SCH (08:46)
[2022-04-24] MEDS: Ferrous Sulfate 325 MG TAB PO SCH ×2 (08:46→19:56)
[2022-04-24] MEDS: Polyethylene Glycol 3350 17 GM Packet PO SCH (08:46)
[2022-04-24] MEDS: Ascorbic Acid 500 mg Chewable Tablet PO SCH ×2 (08:46→19:56)
[2022-04-24] MEDS: Famotidine 20 MG TAB PO SCH ×2 (08:46→19:56)
[2022-04-24] MEDS: Carbidopa/Levodopa 25-100 mg Tablet PO SCH ×3 (08:46→19:56)
[2022-04-24] MEDS: Escitalopram Oxalate 10 mg Tablet PO SCH (08:46)
[2022-04-24] MEDS: Rosuvastatin 10 MG TAB PO SCH (19:56)
[2022-04-24] MEDS: Melatonin 3 MG TAB PO PRN (19:57)
[2022-04-25] MEDS: Acetaminophen 500 MG TAB PO SCH ×4 (05:45→23:32)
[2022-04-25] MEDS: Levothyroxine Sodium 50 MCG TAB PO SCH (05:46)
[2022-04-25] MEDS: Enoxaparin Sodium 40 MG/0.4 ML SYRINGE SC SCH (09:23)
[2022-04-25] MEDS: Ascorbic Acid 500 mg Chewable Tablet PO SCH ×2 (09:24→19:56)
[2022-04-25] MEDS: Famotidine 20 MG TAB PO SCH ×2 (09:24→19:56)
[2022-04-25] MEDS: Ferrous Sulfate 325 MG TAB PO SCH ×2 (09:24→19:57)
[2022-04-25] MEDS: Amlodipine 5 MG TAB PO SCH (09:24)
[2022-04-25] MEDS: Folic Acid 1 MG TAB PO SCH (09:24)
[2022-04-25] MEDS: Escitalopram Oxalate 10 mg Tablet PO SCH (09:25)
[2022-04-25] MEDS: Carbidopa/Levodopa 25-100 mg Tablet PO SCH ×3 (09:25→19:56)
[2022-04-25] MEDS: Donepezil HCl 10 MG TAB PO SCH ×2 (09:25→19:56)
[2022-04-25] MEDS: Polyethylene Glycol 3350 17 GM Packet PO SCH (10:12)
[2022-04-25] MEDS: Senokot S 8.6-50 MG TAB PO SCH ×2 (10:12→19:57)
[2022-04-25] MEDS: Rosuvastatin 10 MG TAB PO SCH (19:56)
[2022-04-25] MEDS: Melatonin 3 MG TAB PO PRN (19:57)
[2022-04-26] MEDS: Levothyroxine Sodium 50 MCG TAB PO SCH (05:27)
[2022-04-26] MEDS: Acetaminophen 500 MG TAB PO SCH ×4 (05:27→23:56)
[2022-04-26] MEDS: Enoxaparin Sodium 40 MG/0.4 ML SYRINGE SC SCH (09:07)
[2022-04-26] MEDS: Folic Acid 1 MG TAB PO SCH (09:08)
[2022-04-26] MEDS: Polyethylene Glycol 3350 17 GM Packet PO SCH (09:08)
[2022-04-26] MEDS: Ascorbic Acid 500 mg Chewable Tablet PO SCH ×2 (09:08→19:51)
[2022-04-26] MEDS: Carbidopa/Levodopa 25-100 mg Tablet PO SCH ×3 (09:08→19:51)
[2022-04-26] MEDS: Ferrous Sulfate 325 MG TAB PO SCH ×2 (09:08→19:50)
[2022-04-26] MEDS: Famotidine 20 MG TAB PO SCH ×2 (09:08→19:52)
[2022-04-26] MEDS: Escitalopram Oxalate 10 mg Tablet PO SCH (09:08)
[2022-04-26] MEDS: Senokot S 8.6-50 MG TAB PO SCH ×2 (09:08→19:53)
[2022-04-26] MEDS: Donepezil HCl 10 MG TAB PO SCH ×2 (09:08→19:51)
[2022-04-26] MEDS: Amlodipine 5 MG TAB PO SCH (09:08)
[2022-04-26] MEDS: Rosuvastatin 10 MG TAB PO SCH (19:50)
[2022-04-26] MEDS: Melatonin 3 MG TAB PO PRN (19:51)
[2022-04-27] MEDS: Acetaminophen 500 MG TAB PO SCH ×3 (06:24→17:20)
[2022-04-27] MEDS: Levothyroxine Sodium 50 MCG TAB PO SCH (06:24)
[2022-04-27] MEDS: Ascorbic Acid 500 mg Chewable Tablet PO SCH ×2 (09:04→20:11)
[2022-04-27] MEDS: Enoxaparin Sodium 40 MG/0.4 ML SYRINGE SC SCH (09:04)
[2022-04-27] MEDS: Folic Acid 1 MG TAB PO SCH (09:04)
[2022-04-27] MEDS: Amlodipine 5 MG TAB PO SCH (09:04)
[2022-04-27] MEDS: Famotidine 20 MG TAB PO SCH ×2 (09:04→20:12)
[2022-04-27] MEDS: Carbidopa/Levodopa 25-100 mg Tablet PO SCH ×3 (09:05→20:12)
[2022-04-27] MEDS: Donepezil HCl 10 MG TAB PO SCH ×2 (09:05→20:11)
[2022-04-27] MEDS: Ferrous Sulfate 325 MG TAB PO SCH ×2 (09:05→20:11)
[2022-04-27] MEDS: Polyethylene Glycol 3350 17 GM Packet PO SCH (09:05)
[2022-04-27] MEDS: Senokot S 8.6-50 MG TAB PO SCH ×2 (09:05→20:12)
[2022-04-27] MEDS: Escitalopram Oxalate 10 mg Tablet PO SCH (09:05)
[2022-04-27] MEDS: Rosuvastatin 10 MG TAB PO SCH (20:11)
[2022-04-27] MEDS: Melatonin 3 MG TAB PO PRN (22:21)
[2022-04-28] MEDS: Acetaminophen 500 MG TAB PO SCH ×5 (01:53→23:45)
[2022-04-28] MEDS: Levothyroxine Sodium 50 MCG TAB PO SCH (05:39)
[2022-04-28] MEDS: Famotidine 20 MG TAB PO SCH ×2 (09:32→19:25)
[2022-04-28] MEDS: Carbidopa/Levodopa 25-100 mg Tablet PO SCH ×3 (09:32→19:25)
[2022-04-28] MEDS: Enoxaparin Sodium 40 MG/0.4 ML SYRINGE SC SCH (09:32)
[2022-04-28] MEDS: Amlodipine 5 MG TAB PO SCH (09:32)
[2022-04-28] MEDS: Folic Acid 1 MG TAB PO SCH (09:32)
[2022-04-28] MEDS: Escitalopram Oxalate 10 mg Tablet PO SCH (09:32)
[2022-04-28] MEDS: Ascorbic Acid 500 mg Chewable Tablet PO SCH ×2 (09:32→19:25)
[2022-04-28] MEDS: Polyethylene Glycol 3350 17 GM Packet PO SCH (09:33)
[2022-04-28] MEDS: Ferrous Sulfate 325 MG TAB PO SCH ×2 (09:33→19:25)
[2022-04-28] MEDS: Senokot S 8.6-50 MG TAB PO SCH ×2 (09:33→19:25)
[2022-04-28] MEDS: Donepezil HCl 10 MG TAB PO SCH ×2 (09:33→19:25)
[2022-04-28] MEDS: Melatonin 3 MG TAB PO PRN (19:24)
[2022-04-28] MEDS: Rosuvastatin 10 MG TAB PO SCH (19:25)
[2022-04-29] MEDS: Levothyroxine Sodium 50 MCG TAB PO SCH (06:38)
[2022-04-29] MEDS: Acetaminophen 500 MG TAB PO SCH ×4 (06:38→23:16)
[2022-04-29] MEDS: Enoxaparin Sodium 40 MG/0.4 ML SYRINGE SC SCH (09:58)
[2022-04-29] MEDS: Famotidine 20 MG TAB PO SCH ×2 (09:59→19:32)
[2022-04-29] MEDS: Escitalopram Oxalate 10 mg Tablet PO SCH (09:59)
[2022-04-29] MEDS: Ferrous Sulfate 325 MG TAB PO SCH ×2 (09:59→19:32)
[2022-04-29] MEDS: Donepezil HCl 10 MG TAB PO SCH ×2 (09:59→19:32)
[2022-04-29] MEDS: Carbidopa/Levodopa 25-100 mg Tablet PO SCH ×3 (09:59→19:31)
[2022-04-29] MEDS: Amlodipine 5 MG TAB PO SCH (10:00)
[2022-04-29] MEDS: Ascorbic Acid 500 mg Chewable Tablet PO SCH ×2 (10:00→19:32)
[2022-04-29] MEDS: Folic Acid 1 MG TAB PO SCH (10:00)
[2022-04-29] MEDS: Polyethylene Glycol 3350 17 GM Packet PO SCH (10:01)
[2022-04-29] MEDS: Senokot S 8.6-50 MG TAB PO SCH ×2 (10:01→19:31)
[2022-04-29] MEDS: Rosuvastatin 10 MG TAB PO SCH (19:32)
[2022-04-30] MEDS: Levothyroxine Sodium 50 MCG TAB PO SCH (05:56)
[2022-04-30] MEDS: Acetaminophen 500 MG TAB PO SCH ×4 (05:56→23:59)
[2022-04-30] MEDS: Donepezil HCl 10 MG TAB PO SCH ×2 (08:55→19:53)
[2022-04-30] MEDS: Ascorbic Acid 500 mg Chewable Tablet PO SCH ×2 (08:55→19:52)
[2022-04-30] MEDS: Folic Acid 1 MG TAB PO SCH (08:55)
[2022-04-30] MEDS: Amlodipine 5 MG TAB PO SCH (08:56)
[2022-04-30] MEDS: Escitalopram Oxalate 10 mg Tablet PO SCH (08:56)
[2022-04-30] MEDS: Senokot S 8.6-50 MG TAB PO SCH ×2 (08:56→19:53)
[2022-04-30] MEDS: Enoxaparin Sodium 40 MG/0.4 ML SYRINGE SC SCH (08:56)
[2022-04-30] MEDS: Polyethylene Glycol 3350 17 GM Packet PO SCH (08:56)
[2022-04-30] MEDS: Carbidopa/Levodopa 25-100 mg Tablet PO SCH ×3 (08:56→19:52)
[2022-04-30] MEDS: Ferrous Sulfate 325 MG TAB PO SCH ×2 (08:56→19:52)
[2022-04-30] MEDS: Famotidine 20 MG TAB PO SCH ×2 (08:56→19:52)
[2022-04-30] MEDS: Melatonin 3 MG TAB PO PRN (19:53)
[2022-04-30] MEDS: Rosuvastatin 10 MG TAB PO SCH (19:53)
[2022-05-01] MEDS: Acetaminophen 500 MG TAB PO SCH ×4 (06:21→23:52)
[2022-05-01] MEDS: Levothyroxine Sodium 50 MCG TAB PO SCH (06:21)
[2022-05-01] MEDS: Enoxaparin Sodium 40 MG/0.4 ML SYRINGE SC SCH (11:30)
[2022-05-01] MEDS: Ferrous Sulfate 325 MG TAB PO SCH ×2 (11:31→21:02)
[2022-05-01] MEDS: Famotidine 20 MG TAB PO SCH ×2 (11:31→21:02)
[2022-05-01] MEDS: Ascorbic Acid 500 mg Chewable Tablet PO SCH ×2 (11:31→21:02)
[2022-05-01] MEDS: Donepezil HCl 10 MG TAB PO SCH ×2 (11:31→21:02)
[2022-05-01] MEDS: Senokot S 8.6-50 MG TAB PO SCH ×2 (11:31→21:03)
[2022-05-01] MEDS: Carbidopa/Levodopa 25-100 mg Tablet PO SCH ×3 (11:31→21:02)
[2022-05-01] MEDS: Folic Acid 1 MG TAB PO SCH (11:31)
[2022-05-01] MEDS: Amlodipine 5 MG TAB PO SCH (11:31)
[2022-05-01] MEDS: Escitalopram Oxalate 10 mg Tablet PO SCH (11:32)
[2022-05-01] MEDS: Polyethylene Glycol 3350 17 GM Packet PO SCH (11:32)
[2022-05-01] MEDS: Rosuvastatin 10 MG TAB PO SCH (21:01)
[2022-05-01] MEDS: Melatonin 3 MG TAB PO PRN (21:02)
[2022-05-02] MEDS: Levothyroxine Sodium 50 MCG TAB PO SCH (05:54)
[2022-05-02] MEDS: Acetaminophen 500 MG TAB PO SCH ×4 (05:54→23:41)
[2022-05-02] MEDS: Escitalopram Oxalate 10 mg Tablet PO SCH (08:29)
[2022-05-02] MEDS: Ferrous Sulfate 325 MG TAB PO SCH ×2 (08:29→21:50)
[2022-05-02] MEDS: Folic Acid 1 MG TAB PO SCH (08:29)
[2022-05-02] MEDS: Enoxaparin Sodium 40 MG/0.4 ML SYRINGE SC SCH (08:29)
[2022-05-02] MEDS: Ascorbic Acid 500 mg Chewable Tablet PO SCH ×2 (08:29→21:50)
[2022-05-02] MEDS: Carbidopa/Levodopa 25-100 mg Tablet PO SCH ×3 (08:29→21:49)
[2022-05-02] MEDS: Donepezil HCl 10 MG TAB PO SCH ×2 (08:29→21:49)
[2022-05-02] MEDS: Famotidine 20 MG TAB PO SCH ×2 (08:29→21:50)
[2022-05-02] MEDS: Amlodipine 5 MG TAB PO SCH (08:29)
[2022-05-02] MEDS: Polyethylene Glycol 3350 17 GM Packet PO SCH (08:33)
[2022-05-02] MEDS: Senokot S 8.6-50 MG TAB PO SCH ×2 (08:34→22:08)
[2022-05-02] MEDS: Melatonin 3 MG TAB PO PRN (21:48)
[2022-05-02] MEDS: Rosuvastatin 10 MG TAB PO SCH (21:49)
[2022-05-03] MEDS: Acetaminophen 500 MG TAB PO SCH ×3 (06:34→17:15)
[2022-05-03] MEDS: Levothyroxine Sodium 50 MCG TAB PO SCH (06:35)
[2022-05-03] MEDS: Donepezil HCl 10 MG TAB PO SCH ×2 (08:41→20:29)
[2022-05-03] MEDS: Enoxaparin Sodium 40 MG/0.4 ML SYRINGE SC SCH (08:41)
[2022-05-03] MEDS: Ascorbic Acid 500 mg Chewable Tablet PO SCH ×2 (08:41→20:29)
[2022-05-03] MEDS: Folic Acid 1 MG TAB PO SCH (08:41)
[2022-05-03] MEDS: Carbidopa/Levodopa 25-100 mg Tablet PO SCH ×3 (08:41→20:29)
[2022-05-03] MEDS: Ferrous Sulfate 325 MG TAB PO SCH ×2 (08:41→20:29)
[2022-05-03] MEDS: Amlodipine 5 MG TAB PO SCH (08:41)
[2022-05-03] MEDS: Escitalopram Oxalate 10 mg Tablet PO SCH (08:41)
[2022-05-03] MEDS: Famotidine 20 MG TAB PO SCH ×2 (08:41→20:29)
[2022-05-03] MEDS: Senokot S 8.6-50 MG TAB PO SCH ×2 (08:46→20:30)
[2022-05-03] MEDS: Polyethylene Glycol 3350 17 GM Packet PO SCH (08:46)
[2022-05-03] MEDS: Rosuvastatin 10 MG TAB PO SCH (20:29)
[2022-05-03] MEDS: Melatonin 3 MG TAB PO PRN (20:29)
[2022-05-04] MEDS: Acetaminophen 500 MG TAB PO SCH ×4 (01:31→17:39)
[2022-05-04] MEDS: Levothyroxine Sodium 50 MCG TAB PO SCH (06:47)
[2022-05-04] MEDS: Senokot S 8.6-50 MG TAB PO SCH ×2 (09:47→19:56)
[2022-05-04] MEDS: Polyethylene Glycol 3350 17 GM Packet PO SCH (09:47)
[2022-05-04] MEDS: Famotidine 20 MG TAB PO SCH ×2 (10:46→19:54)
[2022-05-04] MEDS: Enoxaparin Sodium 40 MG/0.4 ML SYRINGE SC SCH (10:46)
[2022-05-04] MEDS: Ascorbic Acid 500 mg Chewable Tablet PO SCH ×2 (10:46→19:56)
[2022-05-04] MEDS: Folic Acid 1 MG TAB PO SCH (10:46)
[2022-05-04] MEDS: Ferrous Sulfate 325 MG TAB PO SCH ×2 (10:46→19:55)
[2022-05-04] MEDS: Donepezil HCl 10 MG TAB PO SCH ×2 (10:47→19:56)
[2022-05-04] MEDS: Carbidopa/Levodopa 25-100 mg Tablet PO SCH ×3 (10:47→19:55)
[2022-05-04] MEDS: Escitalopram Oxalate 10 mg Tablet PO SCH (10:49)
[2022-05-04] MEDS: Amlodipine 5 MG TAB PO SCH (10:50)
[2022-05-04] MEDS: Melatonin 3 MG TAB PO PRN (19:54)
[2022-05-04] MEDS: Rosuvastatin 10 MG TAB PO SCH (19:55)
[2022-05-05] MEDS: Acetaminophen 500 MG TAB PO SCH ×4 (00:33→18:39)
[2022-05-05] MEDS: Levothyroxine Sodium 50 MCG TAB PO SCH (05:26)
[2022-05-05] MEDS: Escitalopram Oxalate 10 mg Tablet PO SCH (11:18)
[2022-05-05] MEDS: Donepezil HCl 10 MG TAB PO SCH ×2 (11:18→20:18)
[2022-05-05] MEDS: Carbidopa/Levodopa 25-100 mg Tablet PO SCH ×3 (11:18→20:18)
[2022-05-05] MEDS: Enoxaparin Sodium 40 MG/0.4 ML SYRINGE SC SCH (11:18)
[2022-05-05] MEDS: Folic Acid 1 MG TAB PO SCH (11:18)
[2022-05-05] MEDS: Ferrous Sulfate 325 MG TAB PO SCH ×2 (11:19→20:17)
[2022-05-05] MEDS: Famotidine 20 MG TAB PO SCH ×2 (11:19→20:17)
[2022-05-05] MEDS: Ascorbic Acid 500 mg Chewable Tablet PO SCH ×2 (11:19→20:17)
[2022-05-05] MEDS: Amlodipine 5 MG TAB PO SCH (11:19)
[2022-05-05] MEDS: Polyethylene Glycol 3350 17 GM Packet PO SCH (11:38)
[2022-05-05] MEDS: Senokot S 8.6-50 MG TAB PO SCH ×2 (11:38→20:18)
[2022-05-05] MEDS: Melatonin 3 MG TAB PO PRN (20:17)
[2022-05-05] MEDS: Rosuvastatin 10 MG TAB PO SCH (20:18)
[2022-05-06] MEDS: Acetaminophen 500 MG TAB PO SCH ×4 (02:19→18:46)
[2022-05-06] MEDS: Levothyroxine Sodium 50 MCG TAB PO SCH (04:58)
[2022-05-06] MEDS: Senokot S 8.6-50 MG TAB PO SCH ×2 (09:15→19:38)
[2022-05-06] MEDS: Famotidine 20 MG TAB PO SCH ×2 (09:15→19:38)
[2022-05-06] MEDS: Ferrous Sulfate 325 MG TAB PO SCH ×2 (09:15→19:38)
[2022-05-06] MEDS: Ascorbic Acid 500 mg Chewable Tablet PO SCH ×2 (09:15→19:39)
[2022-05-06] MEDS: Amlodipine 5 MG TAB PO SCH (09:15)
[2022-05-06] MEDS: Escitalopram Oxalate 10 mg Tablet PO SCH (09:15)
[2022-05-06] MEDS: Carbidopa/Levodopa 25-100 mg Tablet PO SCH ×3 (09:15→19:39)
[2022-05-06] MEDS: Donepezil HCl 10 MG TAB PO SCH ×2 (09:15→19:38)
[2022-05-06] MEDS: Folic Acid 1 MG TAB PO SCH (09:15)
[2022-05-06] MEDS: Polyethylene Glycol 3350 17 GM Packet PO SCH (09:16)
[2022-05-06] MEDS: Enoxaparin Sodium 40 MG/0.4 ML SYRINGE SC SCH (09:16)
[2022-05-06] MEDS: Rosuvastatin 10 MG TAB PO SCH (19:38)
[2022-05-06] MEDS: Melatonin 3 MG TAB PO PRN (19:38)
[2022-05-07] MEDS: Acetaminophen 500 MG TAB PO SCH ×4 (00:37→18:08)
[2022-05-07] MEDS: Levothyroxine Sodium 50 MCG TAB PO SCH (05:46)
[2022-05-07] MEDS: Escitalopram Oxalate 10 mg Tablet PO SCH (10:20)
[2022-05-07] MEDS: Ferrous Sulfate 325 MG TAB PO SCH ×2 (10:20→20:14)
[2022-05-07] MEDS: Enoxaparin Sodium 40 MG/0.4 ML SYRINGE SC SCH (10:20)
[2022-05-07] MEDS: Donepezil HCl 10 MG TAB PO SCH ×2 (10:21→20:13)
[2022-05-07] MEDS: Amlodipine 5 MG TAB PO SCH (10:21)
[2022-05-07] MEDS: Famotidine 20 MG TAB PO SCH ×2 (10:21→20:14)
[2022-05-07] MEDS: Ascorbic Acid 500 mg Chewable Tablet PO SCH ×2 (10:21→20:14)
[2022-05-07] MEDS: Folic Acid 1 MG TAB PO SCH (10:21)
[2022-05-07] MEDS: Carbidopa/Levodopa 25-100 mg Tablet PO SCH ×3 (10:21→20:14)
[2022-05-07] MEDS: Senokot S 8.6-50 MG TAB PO SCH ×2 (10:22→20:14)
[2022-05-07] MEDS: Polyethylene Glycol 3350 17 GM Packet PO SCH (10:22)
[2022-05-07] MEDS: Rosuvastatin 10 MG TAB PO SCH (20:13)
[2022-05-07] MEDS: Melatonin 3 MG TAB PO PRN (20:14)
[2022-05-08] MEDS: Acetaminophen 500 MG TAB PO SCH ×5 (01:27→23:13)
[2022-05-08] MEDS: Levothyroxine Sodium 50 MCG TAB PO SCH (05:39)
[2022-05-08] MEDS: Enoxaparin Sodium 40 MG/0.4 ML SYRINGE SC SCH (09:24)
[2022-05-08] MEDS: Polyethylene Glycol 3350 17 GM Packet PO SCH (09:24)
[2022-05-08] MEDS: Folic Acid 1 MG TAB PO SCH (09:24)
[2022-05-08] MEDS: Ferrous Sulfate 325 MG TAB PO SCH ×2 (09:24→20:38)
[2022-05-08] MEDS: Senokot S 8.6-50 MG TAB PO SCH ×2 (09:24→20:38)
[2022-05-08] MEDS: Donepezil HCl 10 MG TAB PO SCH ×2 (09:25→20:38)
[2022-05-08] MEDS: Escitalopram Oxalate 10 mg Tablet PO SCH (09:25)
[2022-05-08] MEDS: Famotidine 20 MG TAB PO SCH ×2 (09:25→20:38)
[2022-05-08] MEDS: Carbidopa/Levodopa 25-100 mg Tablet PO SCH ×3 (09:25→20:38)
[2022-05-08] MEDS: Amlodipine 5 MG TAB PO SCH (09:25)
[2022-05-08] MEDS: Ascorbic Acid 500 mg Chewable Tablet PO SCH ×2 (09:25→20:38)
[2022-05-08] MEDS: Rosuvastatin 10 MG TAB PO SCH (20:38)
[2022-05-08] MEDS: Melatonin 3 MG TAB PO PRN (20:38)
[2022-05-09] MEDS: Acetaminophen 500 MG TAB PO SCH ×2 (06:16→11:59)
[2022-05-09] MEDS: Levothyroxine Sodium 50 MCG TAB PO SCH (06:17)
[2022-05-09] MEDS: Escitalopram Oxalate 10 mg Tablet PO SCH (09:46)
[2022-05-09] MEDS: Enoxaparin Sodium 40 MG/0.4 ML SYRINGE SC SCH (09:46)
[2022-05-09] MEDS: Amlodipine 5 MG TAB PO SCH (09:47)
[2022-05-09] MEDS: Carbidopa/Levodopa 25-100 mg Tablet PO SCH (09:47)
[2022-05-09] MEDS: Folic Acid 1 MG TAB PO SCH (09:47)
[2022-05-09] MEDS: Famotidine 20 MG TAB PO SCH (09:47)
[2022-05-09] MEDS: Ascorbic Acid 500 mg Chewable Tablet PO SCH (09:47)
[2022-05-09] MEDS: Ferrous Sulfate 325 MG TAB PO SCH (09:47)
[2022-05-09] MEDS: Donepezil HCl 10 MG TAB PO SCH (09:47)
[2022-05-09] MEDS: Polyethylene Glycol 3350 17 GM Packet PO SCH (09:48)
[2022-05-09] MEDS: Senokot S 8.6-50 MG TAB PO SCH (09:48)
[2022-05-09 12:29] VITALS: BP 114/62; TEMP 97.7
== END 2022-05-09 14:00 | DRG 481 ==
LOC: ERS 18:21 → SURG A 20:18
PROVIDERS: ADMIT Surgery; ATTEND Surgery
PROC: 0QS804Z Reposition Right Femoral Shaft with Internal Fixation Device, Open Approach (ICD-10-PCS; principal; 2022-04-05)
PROC: 30233N1 Transfusion of Nonautologous Red Blood Cells into Peripheral Vein, Percutaneous Approach (ICD-10-PCS; 2022-04-05)
DX: S72.341A Displaced spiral fracture of shaft of right femur, initial encounter for closed fracture (principal); Z20.822 Contact with and (suspected) exposure to COVID-19; M97.01XA Periprosthetic fracture around internal prosthetic right hip joint, initial encounter; D62 Acute posthemorrhagic anemia; F10.188 Alcohol abuse with other alcohol-induced disorder; S72.331A Displaced oblique fracture of shaft of right femur, initial encounter for closed fracture; I10 Essential (primary) hypertension; E78.5 Hyperlipidemia, unspecified; F03.90 Unspecified dementia, unspecified severity, without behavioral disturbance, psychotic disturbance, mood disturbance, and anxiety; F32.A Depression, unspecified; R29.6 Repeated falls; Z96.642 Presence of left artificial hip joint; W18.30XA Fall on same level, unspecified, initial encounter; R33.9 Retention of urine, unspecified; Y92.128 Other place in nursing home as the place of occurrence of the external cause; Z79.899 Other long term (current) drug therapy; Z79.82 Long term (current) use of aspirin; Z79.890 Hormone replacement therapy; Z91.81 History of falling
CPT/HCPCS: 36415; 36430; 70450; 71045; 72170; 76000; 80048; 80053; 82533; 83605; 83735; 84100; 85025; 85610; 86850; 86900; 86901; 93005; C1713; C1776; J0690; J1100; J1630; J1650; J1720; J1885; J2060; J2270; J2405; J2704; J3010; J3475; J3480; J3490; J7050; P9016; P9045; S0028; U0003; U0005

== ENCOUNTER 2022-10-01 08:18 | Emergency (ER) | payer MEDICARE ==
[2022-10-01 09:24] LABS: #Eosinphils 0.1 thou/uL (0.0-0.7); #Lymphocytes 1.2 thou/uL (1.20-3.40); #Monocytes 0.6 thou/uL (0.11-0.59); #Neutrophils 5.8 thou/uL (1.40-6.50); %Basophils 0.5 % (0.0-1.0); %Eosinophils 1.4 % (0.0-10.0); %Lymphocytes 15.5 % (21.0-51.0); %Monocytes 7.7 % (0.0-10.0); %Neutrophils 74.8 % (42.0-75.0); Hemoglobin 13.1 g/dL (14.0-18.0); Mean Corpuscular HGB CONC 32.6 g/dL (32.0-36.0); Mean Corpuscular Hemoglobin 30.3 pg (27.0-31.0); Mean Corpuscular Volume 92.8 fl (78.0-98.0); Mean Platelet Volume 7.3 fL (7.4-10.4); Platelet Count 409 10x3/uL (130-400); RBC Distribution Width 15.3 % (11.5-14.5); Red Blood Cell (RBC) Count 4.32 mill/uL (4.70-6.10); White Blood Cell (WBC) Count 7.7 10x3/uL (4.8-10.8)
[2022-10-01 09:38] LABS: ALT (SGPT) 8 U/L (8-55); AST (SGOT) 11 U/L (5-34); Albumin 3.8 g/dL (3.4-4.8); Alkaline Phosphatase 150 U/L (40-110); Anion Gap 11 mmol/L (10-20); BUN (Urea Nitrogen) 11 mg/dL (8.4-25.7); Bilirubin, Total 0.3 mg/dL (0.2-1.2); Calc. Creatinine Clearance 0 mL/min (70-130); Calcium 9.2 mg/dL (7.8-10.44); Carbon Dioxide 29 mmol/L (23-31); Chloride 107 mmol/L (98-107); Estimated GFR 90; Globulin 2.7 g/dL (2.4-3.5); Glucose 93 mg/dL (83-110); Potassium 3.8 mmol/L (3.5-5.1); Protein, Total 6.5 g/dL (5.8-8.1); Sodium 143 mmol/L (136-145)
[2022-10-01 09:51] LABS: Bilirubin Negative (Negative); Blood, Urine Negative (Negative); Clarity Clear (Clear); Glucose, Urine (Dipstick) Normal (Negative); Ketone, Urine Negative (Negative); Leukocyte Negative Leu/uL (Negative); Nitrite Negative (Negative); Protein, Urine (Dipstick) 10 mg/dL (Neg-Trace); Specific Gravity, Urine 1.017 (1.002-1.036); Urobilinogen Normal mg/dL (Less than 2)
== END 2022-10-01 11:49 ==
LOC: ERS 08:18
DX: F03.90 Unspecified dementia, unspecified severity, without behavioral disturbance, psychotic disturbance, mood disturbance, and anxiety (principal); I10 Essential (primary) hypertension; E78.5 Hyperlipidemia, unspecified; E03.9 Hypothyroidism, unspecified; Z87.891 Personal history of nicotine dependence; Z79.899 Other long term (current) drug therapy
CPT/HCPCS: 36415; 71045; 80053; 81003; 84443; 85025; 93005